=== PATIENT | male | born 1980 | race Two or more races ===

== ENCOUNTER 2020-11-16 20:13 | Emergency (ER) | payer SELFPAY ==
[2020-11-16 21:01] LABS: ANION GAP 15.7 mEq/L (7-13); CHLORIDE,CL 101 mmol/L (98-107); SODIUM,NA 141 mmol/L (136-145)
--- NOTE | 2020-11-16 22:28 | EDM.PDOC ---
ED HPI GENERAL MEDICAL PROBLEM - General Chief Complaint: Neurological Problem Stated Complaint: AMBULANCE Time Seen by Provider: 11/16/20 20:30 Source of Information: Reports: Patient, EMS, RN History Limitations: Reports: No Limitations - History of Present Illness INITIAL COMMENTS - FREE TEXT/NARRATIVE: ED via [facility] with report of seizure [employer]. Self reports seizures since age 3 usually with stress and anxiety. Had 2 last night and [employer]. Did not fall or hit head. no incontinence. Patient states here from [place] and staying with "friends but got in argument last night Unable to get train ticket until Friday night to go back to [place]. Reports at train station sitting on [place] trying to get warm, . Stated people earlier making fun of him, Able to call for EMS himself, and talking to mother on phone when EMS arrived. mother confirmed seizures usually in relation to stressful events. Admits cannabis last month, Last ETOH 10 days prior. Headache Pain Score (Numeric/FACES): 5 - Related Data Allergies Allergy/AdvReac Type Severity Reaction Status Date / Time grass pollen Allergy Sneezing Verified 11/16/20 20:21 Home Meds: Home Meds Divalproex Sodium [Divalproex Sodium ER] 500 mg PO QPM 11/16/20 [History] Divalproex Sodium [Divalproex Sodium ER] 750 mg PO QAM 11/16/20 [History] Losartan [Cozaar] 50 mg PO DAILY 11/16/20 [History] atorvaSTATin Calcium [Lipitor] 20 mg PO QAM 11/16/20 [History] levETIRAcetam [Keppra] 1,000 mg PO QAM 11/16/20 [History] levETIRAcetam [Keppra] 1,500 mg PO QPM 11/16/20 [History] metFORMIN HCl [Metformin HCl] 1,000 mg PO BID 11/16/20 [History] Past Medical History Cardiovascular History: Reports: High Cholesterol, Hypertension Other Cardiovascular History: states that he has a bad heart, states that he is supposed to be on blood thinners but has never gotten them Neurological History: Reports: Seizure Endocrine/Metabolic History: Reports: Diabetes, Type II Social & Family History - Tobacco Use Tobacco Use Status *Q: Never Tobacco User Second Hand Smoke Exposure: No - Recreational Drug Use Recreational Drug Use: Yes Drug Use in Last 12 Months: Yes Recreational Drug Type: Reports: Marijuana/Hashish Recreational Drug Use Frequency: Not Used In Over 1 Month ED ROS GENERAL - Review of Systems Review Of Systems: Comprehensive ROS is negative, except as noted in HPI. - Physical Exam Exam: See Below Exam Limited By: No Limitations General Appearance: Alert, No Apparent Distress Eye Exam: Bilateral Eye: EOMI, PERRL Ears: Normal External Exam Nose: Normal Inspection Throat/Mouth: Normal Inspection, Normal Voice (soft spoken). No: Evidence of Tongue Biting Head Exam: Atraumatic, Normocephalic Neck: Full Range of Motion Respiratory/Chest: No Respiratory Distress, Lungs Clear, Normal Breath Sounds Cardiovascular: Normal Peripheral Pulses, Regular Rate, Rhythm GI/Abdominal: Soft, Non-Tender Neuro Exam (Abbreviated): Alert, Oriented, CN II-XII Intact, Normal Cognition, Normal Gait, No Motor/Sensory Deficits. No: Disoriented, Slow to Respond, Memory Loss Remote Events, Memory Loss Recent Events Back Exam: Full Range of Motion Extremities: Normal Inspection Psychiatric: Normal Mood, Flat Affect Skin Exam: Warm, Dry, Intact Course - Vital Signs Last Recorded V/S: Last Vital Signs Temp 98.7 F 11/16/20 20:08 Pulse 76 11/16/20 20:08 Resp 18 11/16/20 20:08 BP 111/95 H 11/16/20 20:08 Pulse Ox 99 11/16/20 20:08 - Orders/Labs/Meds Orders: Active Orders 24 hr Category Date Time Status DRUG SCREEN URINE BIORAD [URCHEM] Stat Lab 11/16/20 20:15 Ordered Labs: Laboratory Tests 11/16/20 11/16/20 Range/Units 20:35 20:35 WBC 10.4 H (5.0-10.0) 10^3/uL RBC 4.78 (4.6-6.2) 10^6/uL Hgb 15.1 (14.0-18.0) g/dL Hct 42.0 (40.0-54.0) % MCV 87.9 (80-100) fL MCH 31.6 (27.0-34.0) pg MCHC 36.0 H (33.0-35.0) g/dL Plt Count 153 (150-450) 10^3/uL Neut % (Auto) 44.6 (42.2-75.2) % Lymph % (Auto) 47.3 (20.5-50.1) % [place] % (Auto) 6.8 (2-8) % Eos % (Auto) 1.1 (1.0-3.0) % Baso % (Auto) 0.2 (0.0-1.0) % Sodium 141 (136-145) mmol/L Potassium 3.7 (3.5-5.1) mmol/L Chloride 101 (98-107) mmol/L Carbon Dioxide 28 (21-32) mmol/L Anion Gap 15.7 H (7-13) mEq/L BUN 18 (7-18) mg/dL Creatinine 0.62 L (0.70-1.30) mg/dL Est Cr Clr Drug Dosing 146.59 mL/min Estimated GFR (MDRD) > 60 BUN/Creatinine Ratio 29.0 (No establ ref range) Glucose 86 (74-99) mg/dL Calcium 9.1 (8.5-10.1) mg/dL Total Bilirubin 0.5 (0.2-1.0) mg/dL AST 85 H (15-37) U/L ALT 227 H (16-63) U/L Alkaline Phosphatase 44 L (46-116) U/L Total Protein 7.9 (6.4-8.2) g/dL Albumin 4.1 (3.4-5.0) g/dL Globulin 3.8 Albumin/Globulin Ratio 1.1 Ethyl Alcohol < 3 (0) mg/dL Departure - Departure Time of Disposition: 22:29 Disposition: Home, Self-Care 01 Condition: Good Clinical Impression: Seizure, Anxiety - Discharge Information *PRESCRIPTION DRUG MONITORING PROGRAM REVIEWED*: No *COPY OF PRESCRIPTION DRUG MONITORING REPORT IN PATIENT RORO: No Instructions: Seizure, Adult, [id number] Forms: ED Department Discharge Additional Instructions: Take medication as prescribed follow up as needed Sepsis Event Note (ED) - Evaluation Sepsis Screening Result: No Definite Risk - Focused Exam Vital Signs: Vital Signs Temp Pulse Resp BP Pulse Ox 11/16/20 20:08 98.7 F 76 18 111/95 H 99 - My Orders Last 24 Hours: My Active Orders 11/16/20 20:15 DRUG SCREEN URINE BIORAD [URCHEM] Stat - Assessment/Plan Last 24 Hours: My Active Orders 11/16/20 20:15 DRUG SCREEN URINE BIORAD [URCHEM] Stat
== END 2020-11-16 22:42 | disposition home or self-care (01) ==
LOC: DL.ED 20:13
DX: R56.9 Unspecified convulsions (principal); F41.9 Anxiety disorder, unspecified; E78.00 Pure hypercholesterolemia, unspecified; I10 Essential (primary) hypertension; E11.9 Type 2 diabetes mellitus without complications; Z79.84 Long term (current) use of oral hypoglycemic drugs; Z91.048 Other nonmedicinal substance allergy status; Z79.899 Other long term (current) drug therapy
CPT/HCPCS: 36415; 80053; 80307; 85025; 99283; 99285

== ENCOUNTER 2021-03-14 13:36 | Emergency (ER) | payer SELFPAY ==
[2021-03-14 14:51] LABS: ANION GAP 14.1 mEq/L (7-13); CHLORIDE,CL 102 mmol/L (98-107); SODIUM,NA 140 mmol/L (136-145)
[2021-03-14 14:56] LABS: ACETAMINOPHEN 0 ug/mL (10-30 (Therapeutic))
[2021-03-14] MEDS ORDERED: Magnesium Sulfate/Water 2 GM in Premix Bag 1 BAG IV ONE (15:02)
[2021-03-14] MEDS ORDERED: Sodium Chloride 0.9% 1,000 ML IV ONE (15:02)
[2021-03-14] MEDS ORDERED: Bacitracin Oint 1 GM U/D Packet TOP ONE (15:08)
[2021-03-14] MEDS ORDERED: LORazepam 2 MG/ML SDV IVPUSH ONE (15:11)
[2021-03-14] MEDS ORDERED: levETIRAcetam in NaCl (iso-os) 1,000 MG in Premix Bag 1 BAG IV ONE ×2 (15:11)
--- NOTE | 2021-03-14 15:11 | EDM.PDOC ---
ED HPI GENERAL MEDICAL PROBLEM - General Chief Complaint: Neuro Symptoms/Deficits Stated Complaint: AMBULANCE Time Seen by Provider: 03/14/21 14:50 Source of Information: Reports: Patient History Limitations: Reports: No Limitations - History of Present Illness INITIAL COMMENTS - FREE TEXT/NARRATIVE: This 41 yo male patient was brought to the ED by [facility] due to having a seizure. The patient does have a history of seizures, but he has been doing well with his last seizure being in October. The patient reports he has been taking his medications as prescribed. The patient reports he was feeling very hot while at work when all of a sudden he started to see spots. Bystanders report the patient had a seizure. Onset: Today Duration: Minutes: Location: Reports: Generalized Quality: Reports: Other Severity: Moderate Improves with: Reports: None Worsens with: Reports: None Associated Symptoms: Reports: Seizure - Related Data Allergies Allergy/AdvReac Type Severity Reaction Status Date / Time grass pollen Allergy Sneezing Verified 03/14/21 14:00 Home Meds: Home Meds Losartan [Cozaar] 50 mg PO DAILY 11/16/20 [History] atorvaSTATin Calcium [Lipitor] 20 mg PO BEDTIME 11/16/20 [History] levETIRAcetam [Keppra] 1,000 mg PO QAM 11/16/20 [History] levETIRAcetam [Keppra] 1,500 mg PO QPM 11/16/20 [History] metFORMIN HCl [Metformin HCl] 1,000 mg PO BID 11/16/20 [History] Phenytoin Sodium Extended [Dilantin] 300 mg PO BID 03/14/21 [History] Past Medical History Cardiovascular History: Reports: High Cholesterol, Hypertension Other Cardiovascular History: states that he has a bad heart, states that he is supposed to be on blood thinners but has never gotten them Neurological History: Reports: Seizure Endocrine/Metabolic History: Reports: Diabetes, Type II Social & Family History - Tobacco Use Tobacco Use Status *Q: Current Every Day Tobacco User Years of Tobacco use: 0 Packs/Tins Daily: 0 - Caffeine Use Caffeine Use: Reports: Coffee - Recreational Drug Use Recreational Drug Use: No ED ROS GENERAL - Review of Systems Review Of Systems: Comprehensive ROS is negative, except as noted in HPI. - Physical Exam Exam: See Below Exam Limited By: No Limitations General Appearance: Alert, WD/WN, Mild Distress Eye Exam: Bilateral Eye: EOMI, Normal Inspection, PERRL Ears: Normal External Exam, Normal Canal, Hearing Grossly Normal, Normal TMs Nose: Normal Inspection, Normal Mucosa, No Blood Throat/Mouth: Normal Inspection, Normal Lips, Normal Teeth, Normal Gums, Normal Oropharynx, Normal Voice, No Airway Compromise Head Exam: Atraumatic, Normocephalic Neck: Normal Inspection, Supple, Non-Tender, Full Range of Motion Respiratory/Chest: No Respiratory Distress, Lungs Clear, Normal Breath Sounds, No Accessory Muscle Use, Chest Non-Tender Cardiovascular: Normal Peripheral Pulses, Regular Rate, Rhythm, No Edema, No Gallop, No JVD, No Murmur, No Rub GI/Abdominal: Normal Bowel Sounds, Soft, Non-Tender, No Organomegaly, No Distention, No Abnormal Bruit, No Mass (Male) Exam: Deferred Rectal (Males) Exam: Deferred Neuro Exam (Abbreviated): Alert, Oriented, CN II-XII Intact, Normal Cognition, Normal Reflexes, No Motor/Sensory Deficits Back Exam: Normal Inspection, Full Range of Motion, NT Extremities: Other (superfical abrasions to hands) Psychiatric: Normal Affect, Normal Mood Skin Exam: Warm, Dry, Intact, Normal Color, No Rash Course - Vital Signs Last Recorded V/S: Last Vital Signs Temp 98.2 F 03/14/21 14:00 Pulse 95 03/14/21 14:00 Resp 20 03/14/21 14:00 BP 141/89 H 03/14/21 14:00 Pulse Ox 94 L 03/14/21 14:00 - Orders/Labs/Meds Orders: Active Orders 24 hr Category Date Time Status LEVETIRACETAM, S [REF] Urgent Lab 03/14/21 14:24 Received Labs: Laboratory Tests 03/14/21 03/14/21 03/14/21 Range/Units 14:24 14:24 14:24 WBC 8.0 (5.0-10.0) 10^3/uL RBC 4.69 (4.6-6.2) 10^6/uL Hgb 14.8 (14.0-18.0) g/dL Hct 41.4 (40.0-54.0) % MCV 88.3 (80-100) fL MCH 31.6 (27.0-34.0) pg MCHC 35.7 H (33.0-35.0) g/dL Plt Count 172 (150-450) 10^3/uL Neut % (Auto) 63.2 (42.2-75.2) % Lymph % (Auto) 28.1 (20.5-50.1) % [place] % (Auto) 7.1 (2-8) % Eos % (Auto) 1.4 (1.0-3.0) % Baso % (Auto) 0.2 (0.0-1.0) % Sodium 140 (136-145) mmol/L Potassium 4.1 (3.5-5.1) mmol/L Chloride 102 (98-107) mmol/L Carbon Dioxide 28 (21-32) mmol/L Anion Gap 14.1 H (7-13) mEq/L BUN 14 (7-18) mg/dL Creatinine 0.88 (0.70-1.30) mg/dL Est Cr Clr Drug Dosing 109.35 mL/min Estimated GFR (MDRD) > 60 BUN/Creatinine Ratio 15.9 (No establ ref range) Glucose 227 H (70-99) mg/dL Lactic Acid 2.2 H* (0.4-2.0) mmol/L Calcium 9.3 (8.5-10.1) mg/dL Magnesium 1.4 L (1.8-2.4) mg/dL Total Bilirubin 0.4 (0.2-1.0) mg/dL AST 61 H (15-37) U/L ALT 184 H (16-63) U/L Alkaline Phosphatase 59 (46-116) U/L Total Protein 7.5 (6.4-8.2) g/dL Albumin 3.9 (3.4-5.0) g/dL Globulin 3.6 Albumin/Globulin Ratio 1.1 Urine Color (YELLOW) Urine Appearance (CLEAR) Urine pH (5.0-9.0) Ur Specific [place] (1.005-1.030) Urine Protein (NEGATIVE) Urine Glucose (UA) (NEGATIVE) Urine Ketones (NEGATIVE) Urine Occult Blood (NEGATIVE) Urine Nitrite (NEGATIVE) Urine Bilirubin (NEGATIVE) Urine Urobilinogen (0.2-1.0) mg/dL Ur Leukocyte Esterase (NEGATIVE) U Hyaline Cast (Auto) Urine RBC /HPF Urine WBC (0-5/HPF) /HPF Ur Epithelial Cells (NOT SEEN) /HPF Urine Bacteria (0-FEW/HPF) /HPF Urine Mucus (NOT SEEN) /LPF Urine Opiates Screen (NEGATIVE) Ur Oxycodone Screen (NEGATIVE) Urine Methadone Screen (NEGATIVE) Acetaminophen 0 L (10-30 (Therapeutic)) ug/mL Ur Barbiturates Screen (NEGATIVE) Phenytoin (10-20 (Therapeutic)) ug/mL U Tricyclic Antidepress (NEGATIVE) Ur Phencyclidine Scrn (NEGATIVE) Ur Amphetamine Screen (NEGATIVE) U Methamphetamines Scrn (NEGATIVE) Urine MDMA Screen (NEGATIVE) U Benzodiazepines Scrn (NEGATIVE) Urine Cocaine Screen (NEGATIVE) U Marijuana (THC) Screen (NEGATIVE) Ethyl Alcohol < 3 (0) mg/dL 03/14/21 03/14/21 03/14/21 Range/Units 14:24 16:14 16:14 WBC (5.0-10.0) 10^3/uL RBC (4.6-6.2) 10^6/uL Hgb (14.0-18.0) g/dL Hct (40.0-54.0) % MCV (80-100) fL MCH (27.0-34.0) pg MCHC (33.0-35.0) g/dL Plt Count (150-450) 10^3/uL Neut % (Auto) (42.2-75.2) % Lymph % (Auto) (20.5-50.1) % [place] % (Auto) (2-8) % Eos % (Auto) (1.0-3.0) % Baso % (Auto) (0.0-1.0) % Sodium (136-145) mmol/L Potassium (3.5-5.1) mmol/L Chloride (98-107) mmol/L Carbon Dioxide (21-32) mmol/L Anion Gap (7-13) mEq/L BUN (7-18) mg/dL Creatinine (0.70-1.30) mg/dL Est Cr Clr Drug Dosing mL/min Estimated GFR (MDRD) BUN/Creatinine Ratio (No establ ref range) Glucose (70-99) mg/dL Lactic Acid (0.4-2.0) mmol/L Calcium (8.5-10.1) mg/dL Magnesium (1.8-2.4) mg/dL Total Bilirubin (0.2-1.0) mg/dL AST (15-37) U/L ALT (16-63) U/L Alkaline Phosphatase (46-116) U/L Total Protein (6.4-8.2) g/dL Albumin (3.4-5.0) g/dL Globulin Albumin/Globulin Ratio Urine Color Yellow (YELLOW) Urine Appearance Clear (CLEAR) Urine pH 5.5 (5.0-9.0) Ur Specific [place] 1.025 (1.005-1.030) Urine Protein 100 H (NEGATIVE) Urine Glucose (UA) 250 H (NEGATIVE) Urine Ketones Negative (NEGATIVE) Urine Occult Blood Negative (NEGATIVE) Urine Nitrite Negative (NEGATIVE) Urine Bilirubin Negative (NEGATIVE) Urine Urobilinogen 0.2 (0.2-1.0) mg/dL Ur Leukocyte Esterase Negative (NEGATIVE) U Hyaline Cast (Auto) Rare Urine RBC 0-5 /HPF Urine WBC 0-5 (0-5/HPF) /HPF Ur Epithelial Cells Not seen (NOT SEEN) /HPF Urine Bacteria Not seen (0-FEW/HPF) /HPF Urine Mucus Rare (NOT SEEN) /LPF Urine Opiates Screen Negative (NEGATIVE) Ur Oxycodone Screen Negative (NEGATIVE) Urine Methadone Screen Negative (NEGATIVE) Acetaminophen (10-30 (Therapeutic)) ug/mL Ur Barbiturates Screen Negative (NEGATIVE) Phenytoin < 1 L (10-20 (Therapeutic)) ug/mL U Tricyclic Antidepress Negative (NEGATIVE) Ur Phencyclidine Scrn Negative (NEGATIVE) Ur Amphetamine Screen Negative (NEGATIVE) U Methamphetamines Scrn Negative (NEGATIVE) Urine MDMA Screen Negative (NEGATIVE) U Benzodiazepines Scrn Negative (NEGATIVE) Urine Cocaine Screen Negative (NEGATIVE) U Marijuana (THC) Screen Negative (NEGATIVE) Ethyl Alcohol (0) mg/dL Meds: Medications Discontinued Medications Generic Name Dose Route Start Last Admin Trade Name Freq PRN Reason Stop Dose Admin Bacitracin 1 dose 03/14/21 15:08 03/14/21 15:37 Bacitracin Oint 1 Gm U/D Packet TOP 03/14/21 15:09 1 dose ONETIME ONE Administration Magnesium Sulfate 2 gm/ Premix 50 mls @ 25 mls/hr 03/14/21 15:02 03/14/21 15:37 IV 06/16/21 17:01 25 mls/hr ONETIME ONE Administration Sodium Chloride 1,000 mls @ 999 mls/hr 03/14/21 15:02 03/14/21 15:38 Normal Saline IV 03/14/21 16:02 999 mls/hr .BOLUS ONE Administration Levetiracetam 1,000 mg/ Premix 200 mls @ 800 mls/hr 03/14/21 15:11 03/14/21 15:15 IV 03/14/21 15:12 800 mls/hr ONETIME ONE Administration Lorazepam 2 mg 03/14/21 15:11 03/14/21 15:13 Lorazepam 2 Mg/Ml Sdv IVPUSH 03/14/21 15:12 2 mg ONETIME ONE Administration - Re-Assessments/Exams Free Text/Narrative Re-Assessment/Exam: 03/14/21 15:23 While in the ED, the patient did have a witnessed seizure. The patient's girlfriend reports the patient missed doses of his regular medications last night and this morning. Departure - Departure Time of Disposition: 17:06 Disposition: Home, Self-Care 01 Condition: Fair Clinical Impression: Seizure - Discharge Information *PRESCRIPTION DRUG MONITORING PROGRAM REVIEWED*: Not Applicable *COPY OF PRESCRIPTION DRUG MONITORING REPORT IN PATIENT RORO: Not Applicable Instructions: Seizure, Adult, [id number] Forms: ED Department Discharge Care Plan Goals: The patient and his girlfriend were advised of the examination and lab results during the visit. The patient was given IV Magnesium and IV Keppra while in the ED. The patient was encouraged to take his medications as directed. If the patient has any additional symptoms or concerns, the patient should either return to the emergency department or visit his primary care facility. Sepsis Event Note (ED) - Evaluation Sepsis Screening Result: No Definite Risk - Focused Exam Vital Signs: Vital Signs Temp Pulse Resp BP Pulse Ox 03/14/21 14:00 98.2 F 95 20 141/89 H 94 L - My Orders Last 24 Hours: My Active Orders 03/14/21 14:24 LEVETIRACETAM, S [REF] Urgent - Assessment/Plan Last 24 Hours: My Active Orders 03/14/21 14:24 LEVETIRACETAM, S [REF] Urgent
== END 2021-03-14 17:17 | disposition home or self-care (01) ==
LOC: DL.ED 13:36
DX: R56.9 Unspecified convulsions (principal); E78.00 Pure hypercholesterolemia, unspecified; I10 Essential (primary) hypertension; E11.9 Type 2 diabetes mellitus without complications; Z72.0 Tobacco use; Z79.84 Long term (current) use of oral hypoglycemic drugs; Z91.09 Other allergy status, other than to drugs and biological substances
CPT/HCPCS: 36415; 80053; 80143; 80177; 80185; 80305-QW; 80307; 81001; 83605; 83735; 85025; 96365; 96366; 96375; 99284; 99285-25; J1953; J2060; J3475; J7030

== ENCOUNTER 2021-06-25 14:11 | Emergency (ER) | payer BC ==
--- NOTE | 2021-06-25 16:19 | EDM.PDOC ---
ED HPI GENERAL MEDICAL PROBLEM - General Chief Complaint: Gastrointestinal Problem Stated Complaint: VOMITING Time Seen by Provider: 06/25/21 16:08 Source of Information: Reports: Patient History Limitations: Reports: No Limitations - History of Present Illness INITIAL COMMENTS - FREE TEXT/NARRATIVE: This 41 yo male patient reports to the ED due to a sore throat, cough, diffuse chest and abdominal pain. The patient reports his symptoms started this morning and have been getting worse throughout the day. The patient works at [employer] and was advised to come to the ED to be seen. Onset: Today Duration: Constant, Getting Worse Location: Reports: Neck, Chest, Abdomen Quality: Reports: Ache, Dull Severity: Moderate Improves with: Reports: None Worsens with: Reports: None Context: Reports: Other Associated Symptoms: Reports: Cough, Other (sore throat) Middle Chest Pain Score (Numeric/FACES): 7 Throat Pain Score (Numeric/FACES): 5 - Related Data Allergies Allergy/AdvReac Type Severity Reaction Status Date / Time grass pollen Allergy Sneezing Verified 06/25/21 15:18 Home Meds: Home Meds Losartan [Cozaar] 50 mg PO DAILY 11/16/20 [History] atorvaSTATin Calcium [Lipitor] 20 mg PO BEDTIME 11/16/20 [History] levETIRAcetam [Keppra] 1,000 mg PO QAM 11/16/20 [History] levETIRAcetam [Keppra] 1,500 mg PO QPM 11/16/20 [History] metFORMIN HCl [Metformin HCl] 1,000 mg PO BID 11/16/20 [History] Phenytoin Sodium Extended [Dilantin] 300 mg PO BEDTIME 03/14/21 [History] Past Medical History HEENT History: Reports: None Cardiovascular History: Reports: High Cholesterol, Hypertension Other Cardiovascular History: states that he has a bad heart, states that he is supposed to be on blood thinners but has never gotten them Respiratory History: Reports: Other (See Below) Other Respiratory History: states he has a black spot on his R) lung Gastrointestinal History: Reports: Pancreatitis Genitourinary History: Reports: None Musculoskeletal History: Reports: None Neurological History: Reports: Seizure Other Neuro History: last seizure March 2021 Psychiatric History: Reports: None Endocrine/Metabolic History: Reports: Diabetes, Type II Hematologic History: Reports: None Immunologic History: Reports: None Oncologic (Cancer) History: Reports: None Dermatologic History: Reports: None - Infectious Disease History Infectious Disease History: Reports: Chicken Pox - Past Surgical History Head Surgeries/Procedures: Reports: None HEENT Surgical History: Reports: None Cardiovascular Surgical History: Reports: None Respiratory Surgical History: Reports: None GI Surgical History: Reports: None Male Surgical History: Reports: None Endocrine Surgical History: Reports: None Neurological Surgical History: Reports: None Musculoskeletal Surgical History: Reports: None Social & Family History - Tobacco Use Tobacco Use Status *Q: Current Every Day Tobacco User Years of Tobacco use: 25 Packs/Tins Daily: 0.5 Used Tobacco, but Quit: Yes Month/Year Tobacco Last Used: 04/2021 Second Hand Smoke Exposure: No - Caffeine Use Caffeine Use: Reports: Coffee Caffeine Use Comment: 1 - Recreational Drug Use Recreational Drug Use: No ED ROS GENERAL - Review of Systems Review Of Systems: Comprehensive ROS is negative, except as noted in HPI. ED EXAM, GENERAL - Physical Exam Exam: See Below Exam Limited By: No Limitations General Appearance: Alert, WD/WN, Mild Distress Eye Exam: Bilateral Eye: EOMI, Normal Inspection, PERRL Ears: Normal External Exam, Other (Right canal erythema with a small amount of fluid visible behind the TM) Nose: Normal Inspection, Normal Mucosa, No Blood Throat/Mouth: Normal Inspection, Normal Lips, Normal Teeth, Normal Gums, Normal Oropharynx, Normal Voice, No Airway Compromise Head: Atraumatic, Normocephalic Neck: Normal Inspection, Supple, Non-Tender, Full Range of Motion Respiratory/Chest: No Respiratory Distress, Lungs Clear, Normal Breath Sounds, No Accessory Muscle Use, Chest Non-Tender Cardiovascular: Normal Peripheral Pulses, Regular Rate, Rhythm, No Edema, No Gallop, No JVD, No Murmur, No Rub GI/Abdominal: Normal Bowel Sounds, Soft, Non-Tender, No Organomegaly, No Distention, No Abnormal Bruit, No Mass (Male) Exam: Deferred Rectal (Males) Exam: Deferred Back Exam: Normal Inspection, Full Range of Motion, NT Extremities: Normal Inspection, Normal Range of Motion, Non-Tender, Normal Capillary Refill, No Pedal Edema Neurological: Alert, Oriented, CN II-XII Intact, Normal Cognition, Normal Gait, Normal Reflexes, No Motor/Sensory Deficits Psychiatric: Normal Affect, Normal Mood Skin Exam: Warm, Dry, Intact, Normal Color, No Rash Lymphatic: No Adenopathy #1 Interpretation EKG Date: 06/25/21 Time: 16:06 Rhythm: NSR Rate (Beats/Min): 89 [place]: Normal P-Wave: Present QRS: Normal ST-T: Normal QT: Normal Comparison: NA - No Prior EKG Course - Vital Signs Last Recorded V/S: Last Vital Signs Temp 96.5 F L 06/25/21 14:58 Pulse 96 06/25/21 14:58 Resp 14 06/25/21 14:58 BP 135/106 H 06/25/21 14:58 Pulse Ox 98 06/25/21 14:58 - Orders/Labs/Meds Orders: Active Orders 24 hr Category Date Time Status DRUG SCREEN URINE BIORAD [URCHEM] Stat Lab 06/25/21 15:52 Ordered UA RFX TRINI AND CULT IF INDIC [URIN] Urgent Lab 06/25/21 15:52 Ordered Labs: Laboratory Tests 06/25/21 06/25/21 06/25/21 Range/Units 15:17 16:16 16:16 WBC 10.8 H (5.0-10.0) 10^3/uL RBC 5.03 (4.6-6.2) 10^6/uL Hgb 16.0 (14.0-18.0) g/dL Hct 44.5 (40.0-54.0) % MCV 88.5 (80-100) fL MCH 31.8 (27.0-34.0) pg MCHC 36.0 H (33.0-35.0) g/dL Plt Count 209 (150-450) 10^3/uL Neut % (Auto) 59.3 (42.2-75.2) % Lymph % (Auto) 29.5 (20.5-50.1) % [place] % (Auto) 8.7 H (2-8) % Eos % (Auto) 2.2 (1.0-3.0) % Baso % (Auto) 0.3 (0.0-1.0) % Sodium 140 (136-145) mmol/L Potassium 4.3 (3.5-5.1) mmol/L Chloride 101 (98-107) mmol/L Carbon Dioxide 31 (21-32) mmol/L Anion Gap 12.3 (7-13) mEq/L BUN 13 (7-18) mg/dL Creatinine 0.84 (0.70-1.30) mg/dL Est Cr Clr Drug Dosing 107.11 mL/min Estimated GFR (MDRD) > 60 BUN/Creatinine Ratio 15.5 (No establ ref range) Glucose 166 H (70-99) mg/dL Lactic Acid (0.4-2.0) mmol/L Calcium 8.8 (8.5-10.1) mg/dL Total Bilirubin 0.3 (0.2-1.0) mg/dL AST 64 H (15-37) U/L ALT 173 H (16-63) U/L Alkaline Phosphatase 87 (46-116) U/L Troponin I High Sens 6 (<=76) pg/mL Total Protein 8.0 (6.4-8.2) g/dL Albumin 4.1 (3.4-5.0) g/dL Globulin 3.9 Albumin/Globulin Ratio 1.1 SARS-CoV-2 RNA (KERI) Negative (NEGATIVE) 06/25/21 Range/Units 16:16 WBC (5.0-10.0) 10^3/uL RBC (4.6-6.2) 10^6/uL Hgb (14.0-18.0) g/dL Hct (40.0-54.0) % MCV (80-100) fL MCH (27.0-34.0) pg MCHC (33.0-35.0) g/dL Plt Count (150-450) 10^3/uL Neut % (Auto) (42.2-75.2) % Lymph % (Auto) (20.5-50.1) % [place] % (Auto) (2-8) % Eos % (Auto) (1.0-3.0) % Baso % (Auto) (0.0-1.0) % Sodium (136-145) mmol/L Potassium (3.5-5.1) mmol/L Chloride (98-107) mmol/L Carbon Dioxide (21-32) mmol/L Anion Gap (7-13) mEq/L BUN (7-18) mg/dL Creatinine (0.70-1.30) mg/dL Est Cr Clr Drug Dosing mL/min Estimated GFR (MDRD) BUN/Creatinine Ratio (No establ ref range) Glucose (70-99) mg/dL Lactic Acid 1.0 (0.4-2.0) mmol/L Calcium (8.5-10.1) mg/dL Total Bilirubin (0.2-1.0) mg/dL AST (15-37) U/L ALT (16-63) U/L Alkaline Phosphatase (46-116) U/L Troponin I High Sens (<=76) pg/mL Total Protein (6.4-8.2) g/dL Albumin (3.4-5.0) g/dL Globulin Albumin/Globulin Ratio SARS-CoV-2 RNA (KERI) (NEGATIVE) Departure - Departure Time of Disposition: 16:53 Disposition: Home, Self-Care 01 Condition: Fair Clinical Impression: Sore throat Right otitis media Qualifiers: Otitis media type: unspecified Qualified Code(s): H66.91 - Otitis media, unspecified, right ear - Discharge Information *PRESCRIPTION DRUG MONITORING PROGRAM REVIEWED*: Not Applicable *COPY OF PRESCRIPTION DRUG MONITORING REPORT IN PATIENT RORO: Not Applicable Instructions: Otitis Media, Adult, [id number], Pharyngitis, [id number] Forms: ED Department Discharge Care Plan Goals: The patient was advised of the examination, lab and EKG results during the visit. The patient was discharged with a script for Augmentin (500/125) #20 to take 1 by mouth 2 times per day for 10 days. If the patient has any additional symptoms or concerns, the patient should either return to the emergency department or visit his primary care facility. Sepsis Event Note (ED) - Focused Exam Vital Signs: Vital Signs Temp Pulse Resp BP Pulse Ox 06/25/21 14:58 96.5 F L 96 14 135/106 H 98 - My Orders Last 24 Hours: My Active Orders 06/25/21 15:52 DRUG SCREEN URINE BIORAD [URCHEM] Stat UA RFX TRINI AND CULT IF INDIC [URIN] Urgent - Assessment/Plan Last 24 Hours: My Active Orders 06/25/21 15:52 DRUG SCREEN URINE BIORAD [URCHEM] Stat UA RFX TRINI AND CULT IF INDIC [URIN] Urgent
[2021-06-25 16:44] LABS: ANION GAP 12.3 mEq/L (7-13); CHLORIDE,CL 101 mmol/L (98-107); SODIUM,NA 140 mmol/L (136-145)
== END 2021-06-25 17:02 | disposition home or self-care (01) ==
LOC: DL.ED 14:11
DX: J02.9 Acute pharyngitis, unspecified (principal); H66.91 Otitis media, unspecified, right ear; E78.00 Pure hypercholesterolemia, unspecified; I10 Essential (primary) hypertension; E11.9 Type 2 diabetes mellitus without complications; Z91.09 Other allergy status, other than to drugs and biological substances; Z79.84 Long term (current) use of oral hypoglycemic drugs; Z79.899 Other long term (current) drug therapy; Z72.0 Tobacco use; Z20.822 Contact with and (suspected) exposure to COVID-19
CPT/HCPCS: 36415; 80053; 83605; 84484; 85025; 93005; 99284-25; U0002

== ENCOUNTER 2021-08-06 18:58 | Emergency (ER) | payer BC ==
[2021-08-06] MEDS ORDERED: Ondansetron 4 MG Tab.DIS PO ONE (18:59)
[2021-08-06] MEDS ORDERED: Ondansetron 4 MG/2 ML SDV IVPUSH ONE (20:27)
[2021-08-06] MEDS ORDERED: Sodium Chloride 0.9% 1,000 ML IV ONE (20:27)
--- NOTE | 2021-08-06 20:27 | EDM.PDOC ---
ED HPI GENERAL MEDICAL PROBLEM - General Chief Complaint: Respiratory Problem Stated Complaint: COVID - FRIDAY ALL SYSTOMS Time Seen by Provider: 08/06/21 20:50 Source of Information: Reports: Patient, RN History Limitations: Reports: No Limitations - History of Present Illness INITIAL COMMENTS - FREE TEXT/NARRATIVE: Osfernanda JORGENSEN sy one week, tested positive on , Diarrhea body aches fever cough. Today coughing episode and streaks of blood. Diarrhea stools up20 20 times per day, everything goes straight through. Chest discomfort with coughing. Hx seizure disorder, states medications thus far have been staying down. 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 .mid sternal Pain Score (Numeric/FACES): 5 - Related Data Allergies Allergy/AdvReac Type Severity Reaction Status Date / Time grass pollen Allergy Sneezing Verified 08/06/21 19:55 Home Meds: Home Meds Losartan [Cozaar] 50 mg PO DAILY 11/16/20 [History] atorvaSTATin Calcium [Lipitor] 20 mg PO BEDTIME 11/16/20 [History] levETIRAcetam [Keppra] 750 mg PO BID 11/16/20 [History] metFORMIN HCl [Metformin HCl] 1,000 mg PO BID 11/16/20 [History] Phenytoin Sodium Extended [Dilantin] 300 mg PO BEDTIME 03/14/21 [History] Past Medical History HEENT History: Reports: None Cardiovascular History: Reports: High Cholesterol, Hypertension Other Cardiovascular History: states that he has a bad heart, states that he is supposed to be on blood thinners but has never gotten them Respiratory History: Reports: Other (See Below) Other Respiratory History: states he has a black spot on his R) lung Gastrointestinal History: Reports: Pancreatitis Genitourinary History: Reports: None Musculoskeletal History: Reports: None Neurological History: Reports: Seizure Other Neuro History: last seizure March 2021 Psychiatric History: Reports: None Endocrine/Metabolic History: Reports: Diabetes, Type II Hematologic History: Reports: None Immunologic History: Reports: None Oncologic (Cancer) History: Reports: None Dermatologic History: Reports: None - Infectious Disease History Infectious Disease History: Reports: Chicken Pox - Past Surgical History Head Surgeries/Procedures: Reports: None HEENT Surgical History: Reports: None Cardiovascular Surgical History: Reports: None Respiratory Surgical History: Reports: None GI Surgical History: Reports: None Male Surgical History: Reports: None Endocrine Surgical History: Reports: None Neurological Surgical History: Reports: None Musculoskeletal Surgical History: Reports: None Social & Family History - Caffeine Use Caffeine Use: Reports: Coffee Caffeine Use Comment: 1 ED ROS GENERAL - Review of Systems Review Of Systems: Comprehensive ROS is negative, except as noted in HPI. ED EXAM, GENERAL - Physical Exam Exam: See Below Exam Limited By: No Limitations General Appearance: Alert, Mild Distress, Obese Eye Exam: Bilateral Eye: EOMI, PERRL Ears: Normal External Exam, Hearing Grossly Normal, Normal TMs Nose: Normal Inspection Throat/Mouth: Normal Inspection. No: Normal Voice (soft) Head: Atraumatic, Normocephalic Neck: Normal Inspection, Full Range of Motion Respiratory/Chest: No Respiratory Distress, Lungs Clear, Decreased Breath Sounds GI/Abdominal: Normal Bowel Sounds, Soft, Tender (epigastric) Extremities: Normal Inspection Neurological: Alert, Oriented, Normal Cognition Psychiatric: Flat Affect Skin Exam: Warm, Dry, Intact, Normal Color #1 Interpretation EKG Date: 08/06/21 Time: 20:17 Rhythm: NSR [place]: Normal P-Wave: Present QRS: Normal ST-T: Other (flattened II, III, AVF) Comparison: NA - No Prior EKG Course - Vital Signs Last Recorded V/S: Last Vital Signs Temp 97.6 F 08/06/21 23:16 Pulse 90 08/06/21 23:16 Resp 20 08/06/21 23:16 BP 121/75 08/06/21 23:16 Pulse Ox 98 08/06/21 23:16 - Orders/Labs/Meds Labs: Laboratory Tests 08/06/21 08/06/21 08/06/21 Range/Units 20:23 20:23 20:23 WBC 5.8 (5.0-10.0) 10^3/uL RBC 5.35 (4.6-6.2) 10^6/uL Hgb 16.9 (14.0-18.0) g/dL Hct 46.6 (40.0-54.0) % MCV 87.1 (80-100) fL MCH 31.6 (27.0-34.0) pg MCHC 36.3 H (33.0-35.0) g/dL Plt Count 147 L (150-450) 10^3/uL Neut % (Auto) 45.2 (42.2-75.2) % Lymph % (Auto) 41.1 (20.5-50.1) % [place] % (Auto) 13.2 H (2-8) % Eos % (Auto) 0.2 L (1.0-3.0) % Baso % (Auto) 0.3 (0.0-1.0) % D-Dimer, Quantitative 137 (0-400) ng/mL Sodium 136 (136-145) mmol/L Potassium 4.1 (3.5-5.1) mmol/L Chloride 97 L (98-107) mmol/L Carbon Dioxide 26 (21-32) mmol/L Anion Gap 17.1 H (7-13) mEq/L BUN 15 (7-18) mg/dL Creatinine 0.87 (0.70-1.30) mg/dL Est Cr Clr Drug Dosing 103.41 mL/min Estimated GFR (MDRD) > 60 BUN/Creatinine Ratio 17.2 (No establ ref range) Glucose 180 H (70-99) mg/dL Lactic Acid (0.4-2.0) mmol/L Calcium 8.6 (8.5-10.1) mg/dL Total Bilirubin 0.4 (0.2-1.0) mg/dL AST 43 H (15-37) U/L ALT 127 H (16-63) U/L Alkaline Phosphatase 81 (46-116) U/L C-Reactive Protein 1.5 H (0.0-0.9) mg/dL B-Natriuretic Peptide < 5 (0-100) pg/ml Total Protein 8.2 (6.4-8.2) g/dL Albumin 3.9 (3.4-5.0) g/dL Globulin 4.3 Albumin/Globulin Ratio 0.9 Amylase 69 (25-115) U/L Lipase 192 (73-393) U/L Urine Color (YELLOW) Urine Appearance (CLEAR) Urine pH (5.0-9.0) Ur Specific [place] (1.005-1.030) Urine Protein (NEGATIVE) Urine Glucose (UA) (NEGATIVE) Urine Ketones (NEGATIVE) Urine Occult Blood (NEGATIVE) Urine Nitrite (NEGATIVE) Urine Bilirubin (NEGATIVE) Urine Urobilinogen (0.2-1.0) mg/dL Ur Leukocyte Esterase (NEGATIVE) Urine RBC (0-5) /HPF Urine WBC (0-5/HPF) /HPF Ur Epithelial Cells (NOT SEEN) /HPF Amorphous Sediment (NOT SEEN) /HPF Urine Mucus (NOT SEEN) /LPF Phenytoin (10-20 (Therapeutic)) ug/mL 08/06/21 08/06/21 08/06/21 Range/Units 20:23 20:23 22:50 WBC (5.0-10.0) 10^3/uL RBC (4.6-6.2) 10^6/uL Hgb (14.0-18.0) g/dL Hct (40.0-54.0) % MCV (80-100) fL MCH (27.0-34.0) pg MCHC (33.0-35.0) g/dL Plt Count (150-450) 10^3/uL Neut % (Auto) (42.2-75.2) % Lymph % (Auto) (20.5-50.1) % [place] % (Auto) (2-8) % Eos % (Auto) (1.0-3.0) % Baso % (Auto) (0.0-1.0) % D-Dimer, Quantitative (0-400) ng/mL Sodium (136-145) mmol/L Potassium (3.5-5.1) mmol/L Chloride (98-107) mmol/L Carbon Dioxide (21-32) mmol/L Anion Gap (7-13) mEq/L BUN (7-18) mg/dL Creatinine (0.70-1.30) mg/dL Est Cr Clr Drug Dosing mL/min Estimated GFR (MDRD) BUN/Creatinine Ratio (No establ ref range) Glucose (70-99) mg/dL Lactic Acid 1.3 (0.4-2.0) mmol/L Calcium (8.5-10.1) mg/dL Total Bilirubin (0.2-1.0) mg/dL AST (15-37) U/L ALT (16-63) U/L Alkaline Phosphatase (46-116) U/L C-Reactive Protein (0.0-0.9) mg/dL B-Natriuretic Peptide (0-100) pg/ml Total Protein (6.4-8.2) g/dL Albumin (3.4-5.0) g/dL Globulin Albumin/Globulin Ratio Amylase (25-115) U/L Lipase (73-393) U/L Urine Color Dark yellow (YELLOW) Urine Appearance Slightly cloudy (CLEAR) Urine pH 5.5 (5.0-9.0) Ur Specific [place] >= 1.030 (1.005-1.030) Urine Protein >=300 H (NEGATIVE) Urine Glucose (UA) Negative (NEGATIVE) Urine Ketones Negative (NEGATIVE) Urine Occult Blood Small H (NEGATIVE) Urine Nitrite Negative (NEGATIVE) Urine Bilirubin Negative (NEGATIVE) Urine Urobilinogen 0.2 (0.2-1.0) mg/dL Ur Leukocyte Esterase Negative (NEGATIVE) Urine RBC 0-5 (0-5) /HPF Urine WBC 0-5 (0-5/HPF) /HPF Ur Epithelial Cells Few (NOT SEEN) /HPF Amorphous Sediment Few (NOT SEEN) /HPF Urine Mucus Few H (NOT SEEN) /LPF Phenytoin 5 L (10-20 (Therapeutic)) ug/mL Meds: Medications Discontinued Medications Generic Name Dose Route Start Last Admin Trade Name Andreyq PRN Reason Stop Dose Admin Acetaminophen 650 mg 08/06/21 22:11 08/06/21 22:14 Acetaminophen 325 Mg Tab PO 08/06/21 22:12 650 mg NOW ONE Administration Azithromycin 500 mg 08/06/21 22:45 08/06/21 23:06 Azithromycin 250 Mg Tab PO 08/06/21 22:46 500 mg ONETIME ONE Administration Famotidine 20 mg 08/06/21 21:45 08/06/21 22:03 Famotidine 20 Mg/2 Ml Sdv IVPUSH 08/06/21 21:46 20 mg ONETIME ONE Administration Sodium Chloride 1,000 mls @ 250 mls/hr 08/06/21 20:27 08/06/21 20:43 Normal Saline IV 08/07/21 00:26 250 mls/hr .BOLUS ONE Administration Ondansetron HCl 4 mg 08/06/21 20:27 08/06/21 20:43 Ondansetron 4 Mg/2 Ml Sdv IVPUSH 08/06/21 20:28 4 mg ONETIME ONE Administration Ondansetron HCl Confirm 08/06/21 22:56 08/06/21 23:11 Ondansetron 4 Mg Tab.Dis Administered 08/06/21 22:57 Not Given Dose 12 mg .ROUTE .STK-MED ONE Phenytoin Sodium 300 mg 08/07/21 21:48 08/06/21 22:04 Phenytoin 100 Mg Cap.Er PO 08/07/21 21:49 300 mg BEDTIME ONE Administration Phenytoin Sodium Confirm 08/06/21 21:57 08/06/21 22:06 Phenytoin 100 Mg Cap.Er Administered 08/06/21 21:58 Not Given Dose 300 mg .ROUTE .STK-MED ONE - Re-Assessments/Exams Free Text/Narrative Re-Assessment/Exam: 08/07/21 01:31 Sx improved, Reports feeling better with less nausea and not as achey after fluids. More alert. VSS No further emesis or diarrhea during ED stay. Departure - Departure Time of Disposition: 22:42 Disposition: Home, Self-Care 01 Condition: Good Clinical Impression: COVID, Diarrhea - Discharge Information *PRESCRIPTION DRUG MONITORING PROGRAM REVIEWED*: No *COPY OF PRESCRIPTION DRUG MONITORING REPORT IN PATIENT RORO: No Instructions: Symptoms of COVID-19 - CDC (11/20/2020) Forms: ED Department Discharge Additional Instructions: increase fluids tyelnol 500mg every 4 hours as needed for fever/ discomfort additional dilantin tonight at bedtime 200mg zofran 4mg ODT every 4 hours as needed for nausea pepcid 20mg daily as needed for indigestion azithromycin 250mg one daily for 4 days follow up if symptoms not improving or worsening Sepsis Event Note (ED) - Evaluation Sepsis Screening Result: No Definite Risk - Focused Exam Vital Signs: Vital Signs Temp Temp Pulse Resp BP Pulse Ox 08/06/21 23:16 97.6 F 90 20 121/75 98 08/06/21 22:14 100.7 F H 08/06/21 22:08 100.7 F H 99 22 H 137/93 H 96 08/06/21 19:18 98.3 F 109 H 16 143/82 H 97
[2021-08-06 21:10] LABS: ANION GAP 17.1 mEq/L (7-13); CHLORIDE,CL 97 mmol/L (98-107); SODIUM,NA 136 mmol/L (136-145)
[2021-08-06] MEDS ORDERED: Famotidine 20 MG/2 ML SDV IVPUSH ONE (21:45)
[2021-08-06] MEDS ORDERED: Phenytoin 100 MG Cap.ER ONE (21:57)
[2021-08-06] MEDS ORDERED: Acetaminophen 325 MG Tab PO ONE (22:11)
--- NOTE | 2021-08-06 22:22 | CR ---
PROCEDURE INFORMATION: Exam: XR Chest Exam date and time: 08/06/2021 9:53 PM Age: 41 years old Clinical indication: Cough; Additional info: Cough covid + one week ago TECHNIQUE: Imaging protocol: XR of the chest. Views: 1 view. COMPARISON: No relevant prior studies available. FINDINGS: Lungs: Mild bilateral hazy and patchy pulmonary opacities. No dense lobar consolidation. Pleural spaces: Unremarkable. No pleural effusion. No pneumothorax. Heart/Mediastinum: Unremarkable. No cardiomegaly. Bones/joints: No evidence of acute osseous abnormality. IMPRESSION: Mild bilateral pulmonary opacities are nonspecific but can be seen with viral pneumonia.
[2021-08-06] MEDS ORDERED: Azithromycin 250 MG Tab PO ONE (22:45)
[2021-08-06] MEDS ORDERED: Ondansetron 4 MG Tab.DIS ONE (22:56)
[2021-08-07] MEDS ORDERED: Phenytoin 100 MG Cap.ER PO ONE (21:48)
== END 2021-08-06 23:23 | disposition home or self-care (01) ==
LOC: DL.ED 18:58
DX: U07.1 COVID-19 (principal); R19.7 Diarrhea, unspecified; E11.9 Type 2 diabetes mellitus without complications; Z79.84 Long term (current) use of oral hypoglycemic drugs; Z91.048 Other nonmedicinal substance allergy status; Z79.899 Other long term (current) drug therapy
CPT/HCPCS: 36415; 71045; 80053; 80185; 81001; 82150; 83605; 83690; 83880; 85025; 85379; 86140; 93005; 96374; 96375; 99285; A9270; J2405; J3490; J7030

== ENCOUNTER 2021-08-12 03:11 | Inpatient (IN) | payer BC ==
[~2021-08-12 03:11] MED LIST: Phenytoin 1,000 MG in Sodium Chloride 0.9% 100 ML IV ONE; Sodium Chloride 0.9% 1,000 ML IV ONE
--- NOTE | 2021-08-12 03:11 | EDM.PDOC ---
ED HPI GENERAL MEDICAL PROBLEM - General Stated Complaint: AMBULANCE Time Seen by Provider: 08/12/21 03:00 Source of Information: Reports: Patient, EMS, EMS Notes Reviewed, RN, RN Notes Reviewed History Limitations: Reports: Altered Mental Status - History of Present Illness INITIAL COMMENTS - FREE TEXT/NARRATIVE: Patient is a 41-year-old male who presents to ER per [facility] with complaint of seizures. Patient does have a known seizure disorder, currently takes Keppra as well as Dilantin. Report from EMS was that the patient began having seizures at approximately 9:30 PM this evening. Upon arrival to the ER patient had had 5 total seizures. Patient very postictal upon arrival to ER. Chart review shows Covid diagnosis on 08/06/2021, with monoclonal infusion on 08/09/2021. /significant other reported to EMS no drug or alcohol use, reports that the patient has been taking his medications as prescribed. Patient is reportedly diabetic, takes Metformin. Onset: Today, Sudden - Related Data Allergies Allergy/AdvReac Type Severity Reaction Status Date / Time grass pollen Allergy Sneezing Verified 08/09/21 11:07 Home Meds: Home Meds Losartan [Cozaar] 50 mg PO DAILY 11/16/20 [History] atorvaSTATin Calcium [Lipitor] 20 mg PO BEDTIME 11/16/20 [History] levETIRAcetam [Keppra] 1,500 mg PO BID 11/16/20 [History] metFORMIN HCl [Metformin HCl] 1,000 mg PO BID 11/16/20 [History] Phenytoin Sodium Extended [Dilantin] 300 mg PO BEDTIME 03/14/21 [History] Past Medical History HEENT History: Reports: None Cardiovascular History: Reports: High Cholesterol, Hypertension Other Cardiovascular History: states that he has a bad heart, states that he is supposed to be on blood thinners but has never gotten them Respiratory History: Reports: Other (See Below) Other Respiratory History: states he has a black spot on his R) lung. Covid 19 08/02/21 Gastrointestinal History: Reports: Pancreatitis Genitourinary History: Reports: None Musculoskeletal History: Reports: Arthritis Neurological History: Reports: Seizure Other Neuro History: last seizure March 2021 Psychiatric History: Reports: None Endocrine/Metabolic History: Reports: Diabetes, Type II Hematologic History: Reports: None Immunologic History: Reports: None Oncologic (Cancer) History: Reports: None Dermatologic History: Reports: None - Infectious Disease History Infectious Disease History: Reports: Chicken Pox, Novel Coronavirus - Past Surgical History Head Surgeries/Procedures: Reports: None HEENT Surgical History: Reports: None Cardiovascular Surgical History: Reports: None Respiratory Surgical History: Reports: None GI Surgical History: Reports: Colonoscopy Male Surgical History: Reports: None Endocrine Surgical History: Reports: None Neurological Surgical History: Reports: None Musculoskeletal Surgical History: Reports: None Dermatological Surgical History: Reports: None Social & Family History - Caffeine Use Caffeine Use: Reports: Coffee Caffeine Use Comment: LARGE CUP IN THE AM ED ROS GENERAL - Review of Systems Review Of Systems: Comprehensive ROS is negative, except as noted in HPI. - Physical Exam Exam: See Below Exam Limited By: Altered Mental Status General Appearance: Obtunded Eye Exam: Bilateral Eye: EOMI, Normal Inspection, PERRL (2 sluggish) Ears: Hearing Grossly Normal, Other (tragus abnormality) Nose: Normal Inspection Throat/Mouth: Normal Inspection, Normal Lips, Normal Teeth, Normal Gums, Normal Oropharynx, No Airway Compromise Head Exam: Atraumatic, Normocephalic Neck: Normal Inspection, Supple, Non-Tender, Full Range of Motion Respiratory/Chest: No Respiratory Distress, Lungs Clear, No Accessory Muscle Use, Chest Non-Tender, Decreased Breath Sounds Cardiovascular: Normal Peripheral Pulses, Regular Rate, Rhythm, No Edema, No Gallop, No JVD, No Murmur, No Rub, Tachycardia GI/Abdominal: Normal Bowel Sounds, Soft, Non-Tender, No Organomegaly, No Distention, No Abnormal Bruit, No Mass (Male) Exam: Deferred Rectal (Males) Exam: Deferred Neuro Exam (Abbreviated): Other (postictal) Back Exam: Normal Inspection, Full Range of Motion Extremities: Normal Inspection, Normal Range of Motion, Non-Tender, No Pedal Edema, Normal Capillary Refill Psychiatric: Other Skin Exam: Warm, Dry, Intact, Normal Color, No Rash #1 Interpretation EKG Date: 08/12/21 Time: 03:07 Rhythm: Other (sinus tachycardia) Rate (Beats/Min): 127 [place]: Normal P-Wave: Present QRS: Normal ST-T: Normal QT: Normal Comparison: Change From Previous EKG Course - Vital Signs Last Recorded V/S: Last Vital Signs Temp 98.4 F 08/12/21 03:13 Pulse 124 H 08/12/21 03:13 Resp 16 08/12/21 03:13 BP 145/107 H 08/12/21 03:13 Pulse Ox 95 08/12/21 03:13 - Orders/Labs/Meds Orders: Active Orders 24 hr Category Date Time Status CULTURE BLOOD [BC] Stat Lab 08/12/21 03:05 Received CULTURE BLOOD [BC] Stat Lab 08/12/21 03:15 Received LEVETIRACETAM, S [REF] Stat Lab 08/12/21 03:05 Received UA W/MICROSCOPIC [URIN] Stat Lab 08/12/21 02:56 Results Blood Culture x2 Reflex Set [OM.PC] Stat Oth 08/12/21 02:54 Ordered Medication Orders Dextrose/Water (50% Dextrose In Water 50 Ml Syringe) 25 ml IVPUSH ASDIRECTED PRN PRN Reason: Hypoglycemia BS<70 Insulin Human Lispro (Insulin Lispro 100 Units/Ml 3 Ml Vial) 0 unit SUBCUT WITHMEALSANDBED ANUEL; Protocol Levetiracetam (Levetiracetam 500 Mg Tab) 1,500 mg PO BID ANUEL Lorazepam (Lorazepam 2 Mg/Ml Sdv) 1 mg IVPUSH Q1H PRN PRN Reason: agitation, seizure Phenytoin Sodium (Phenytoin 100 Mg Cap.Er) 300 mg PO BEDTIME ANUEL Labs: Laboratory Tests 08/12/21 08/12/21 08/12/21 Range/Units 02:55 02:56 03:05 WBC 12.3 H (5.0-10.0) 10^3/uL RBC 5.23 (4.6-6.2) 10^6/uL Hgb 16.3 (14.0-18.0) g/dL Hct 45.7 (40.0-54.0) % MCV 87.4 (80-100) fL MCH 31.2 (27.0-34.0) pg MCHC 35.7 H (33.0-35.0) g/dL Plt Count 339 D (150-450) 10^3/uL Neut % (Auto) 71.7 (42.2-75.2) % Lymph % (Auto) 21.6 (20.5-50.1) % [place] % (Auto) 5.6 (2-8) % Eos % (Auto) 0.9 L (1.0-3.0) % Baso % (Auto) 0.2 (0.0-1.0) % Add Manual Diff Yes Neutrophils % (Manual) 70 (42-75) % Band Neutrophils % 6 % Lymphocytes % (Manual) 21 (20-50) % Atypical Lymphs % 0 % Monocytes % (Manual) 1 L (2-8) % Eosinophils % (Manual) 2 (1-3) % Sodium (136-145) mmol/L Potassium (3.5-5.1) mmol/L Chloride (98-107) mmol/L Carbon Dioxide (21-32) mmol/L Anion Gap (7-13) mEq/L BUN (7-18) mg/dL Creatinine (0.70-1.30) mg/dL Est Cr Clr Drug Dosing Estimated GFR (MDRD) BUN/Creatinine Ratio (No establ ref range) Glucose (70-99) mg/dL Calcium (8.5-10.1) mg/dL Total Bilirubin (0.2-1.0) mg/dL Direct Bilirubin (0.0-0.2) mg/dL AST (15-37) U/L ALT (16-63) U/L Alkaline Phosphatase (46-116) U/L C-Reactive Protein (0.0-0.9) mg/dL Total Protein (6.4-8.2) g/dL Albumin (3.4-5.0) g/dL Globulin Albumin/Globulin Ratio Urine Color Yellow (YELLOW) Urine Appearance Slightly cloudy (CLEAR) Urine pH 5.0 (5.0-9.0) Ur Specific [place] >= 1.030 (1.005-1.030) Urine Protein 100 H (NEGATIVE) Urine Glucose (UA) 500 H (NEGATIVE) Urine Ketones Trace H (NEGATIVE) Urine Occult Blood Trace-intact H (NEGATIVE) Urine Nitrite Negative (NEGATIVE) Urine Bilirubin Negative (NEGATIVE) Urine Urobilinogen 0.2 (0.2-1.0) mg/dL Ur Leukocyte Esterase Negative (NEGATIVE) Urine Opiates Screen Negative (NEGATIVE) Ur Oxycodone Screen Negative (NEGATIVE) Urine Methadone Screen Negative (NEGATIVE) Ur Barbiturates Screen Positive H (NEGATIVE) Phenytoin (10-20 (Therapeutic)) ug/mL U Tricyclic Antidepress Negative (NEGATIVE) Ur Phencyclidine Scrn Negative (NEGATIVE) Ur Amphetamine Screen Negative (NEGATIVE) U Methamphetamines Scrn Negative (NEGATIVE) Urine MDMA Screen Negative (NEGATIVE) U Benzodiazepines Scrn Negative (NEGATIVE) Urine Cocaine Screen Negative (NEGATIVE) U Marijuana (THC) Screen Negative (NEGATIVE) Ethyl Alcohol (0) mg/dL 08/12/21 08/12/21 08/12/21 Range/Units 03:05 03:05 03:05 WBC (5.0-10.0) 10^3/uL RBC (4.6-6.2) 10^6/uL Hgb (14.0-18.0) g/dL Hct (40.0-54.0) % MCV (80-100) fL MCH (27.0-34.0) pg MCHC (33.0-35.0) g/dL Plt Count (150-450) 10^3/uL Neut % (Auto) (42.2-75.2) % Lymph % (Auto) (20.5-50.1) % [place] % (Auto) (2-8) % Eos % (Auto) (1.0-3.0) % Baso % (Auto) (0.0-1.0) % Add Manual Diff Neutrophils % (Manual) (42-75) % Band Neutrophils % % Lymphocytes % (Manual) (20-50) % Atypical Lymphs % % Monocytes % (Manual) (2-8) % Eosinophils % (Manual) (1-3) % Sodium 143 (136-145) mmol/L Potassium 4.0 (3.5-5.1) mmol/L Chloride 102 (98-107) mmol/L Carbon Dioxide 14 L D (21-32) mmol/L Anion Gap 31.0 H (7-13) mEq/L BUN 18 (7-18) mg/dL Creatinine 1.38 H (0.70-1.30) mg/dL Est Cr Clr Drug Dosing TNP Estimated GFR (MDRD) 57 BUN/Creatinine Ratio 13.0 (No establ ref range) Glucose 303 H (70-99) mg/dL Calcium 9.5 (8.5-10.1) mg/dL Total Bilirubin 0.3 (0.2-1.0) mg/dL Direct Bilirubin 0.1 (0.0-0.2) mg/dL AST 69 H (15-37) U/L ALT 143 H (16-63) U/L Alkaline Phosphatase 90 (46-116) U/L C-Reactive Protein 1.8 H (0.0-0.9) mg/dL Total Protein 8.5 H (6.4-8.2) g/dL Albumin 3.6 (3.4-5.0) g/dL Globulin 4.9 Albumin/Globulin Ratio 0.7 Urine Color (YELLOW) Urine Appearance (CLEAR) Urine pH (5.0-9.0) Ur Specific [place] (1.005-1.030) Urine Protein (NEGATIVE) Urine Glucose (UA) (NEGATIVE) Urine Ketones (NEGATIVE) Urine Occult Blood (NEGATIVE) Urine Nitrite (NEGATIVE) Urine Bilirubin (NEGATIVE) Urine Urobilinogen (0.2-1.0) mg/dL Ur Leukocyte Esterase (NEGATIVE) Urine Opiates Screen (NEGATIVE) Ur Oxycodone Screen (NEGATIVE) Urine Methadone Screen (NEGATIVE) Ur Barbiturates Screen (NEGATIVE) Phenytoin 2 L (10-20 (Therapeutic)) ug/mL U Tricyclic Antidepress (NEGATIVE) Ur Phencyclidine Scrn (NEGATIVE) Ur Amphetamine Screen (NEGATIVE) U Methamphetamines Scrn (NEGATIVE) Urine MDMA Screen (NEGATIVE) U Benzodiazepines Scrn (NEGATIVE) Urine Cocaine Screen (NEGATIVE) U Marijuana (THC) Screen (NEGATIVE) Ethyl Alcohol < 3 (0) mg/dL Meds: Medications Generic Name Dose Route Start Last Admin Trade Name Freq PRN Reason Stop Dose Admin Dextrose/Water 25 ml 08/12/21 04:10 50% Dextrose In Water 50 Ml Syringe IVPUSH ASDIRECTED PRN Hypoglycemia BS<70 Insulin Human Lispro 0 unit 08/12/21 08:00 Insulin Lispro 100 Units/Ml 3 Ml Vial SUBCUT [facility]ED [facility] Protocol Levetiracetam 1,500 mg 08/12/21 09:00 Levetiracetam 500 Mg Tab PO BID ANUEL Lorazepam 1 mg 08/12/21 04:12 Lorazepam 2 Mg/Ml Sdv IVPUSH Q1H PRN agitation, seizure Phenytoin Sodium 300 mg 08/12/21 21:00 Phenytoin 100 Mg Cap.Er PO BEDTIME ANUEL Discontinued Medications Generic Name Dose Route Start Last Admin Trade Name Freq PRN Reason Stop Dose Admin Phenytoin Sodium 1,000 mg/ 120 mls @ 240 mls/hr 08/12/21 02:56 08/12/21 03:24 Sodium Chloride IV 08/12/21 02:57 240 mls/hr ONETIME ONE Administration Sodium Chloride 1,000 mls @ 999 mls/hr 08/12/21 03:07 Normal Saline IV 08/12/21 04:07 .BOLUS ONE Lorazepam Confirm 08/12/21 03:14 08/12/21 03:56 Lorazepam 2 Mg/Ml Sdv Administered 08/12/21 03:15 Not Given Dose 2 mg .ROUTE .STK-MED ONE Lorazepam Confirm 08/12/21 03:21 08/12/21 03:56 Lorazepam 2 Mg/Ml Sdv Administered 08/12/21 03:22 Not Given Dose 2 mg .ROUTE .STK-MED ONE Lorazepam 2 mg 08/12/21 03:24 08/12/21 03:14 Lorazepam 2 Mg/Ml Sdv IVPUSH 08/12/21 03:25 2 mg ONETIME ONE Administration Lorazepam 1 mg 08/12/21 03:25 08/12/21 03:19 Lorazepam 2 Mg/Ml Sdv IVPUSH 08/12/21 03:26 1 mg ONETIME ONE Administration Lorazepam 2 mg 08/12/21 03:30 08/12/21 03:38 Lorazepam 2 Mg/Ml Sdv IVPUSH 08/12/21 03:31 2 mg ONETIME ONE Administration - Radiology Interpretation Free Text/Narrative:: Head CT wo contrast: [facility] [place] [facility] Final Radiology Report Call: [phone] assistance Online chat: [email or web address] Name: GABBI ANN Age: 41Years M Date: 08/12/2021 SSN: -- : [id number] Study: CT HEAD WO CONT Requesting Physician: Marilee Louise Images: 304 Addl Studies: Provided Clinical History: seizures Contrast: Without Contrast Medium: Contrast Amount: Contrast Method: CONFIDENTIALITY STATEMENT This report is intended only for use by the referring physician, and only in accordance with law. If you received this in error, call [phone]. Page 1 of 1 PROCEDURE INFORMATION: Exam: CT Head Without Contrast Exam date and time: 08/12/2021 3:37 AM Age: 41 years old Clinical indication: Other: Seizure; Additional info: Seizures TECHNIQUE: Imaging protocol: Computed tomography of the head without contrast. Radiation optimization: All CT scans at this facility use at least one of these dose optimization techniques: automated exposure control; mA and/or kV adjustment per patient size (includes targeted exams where dose is matched to clinical indication); or iterative reconstruction. COMPARISON: No relevant prior studies available. FINDINGS: Brain: Normal. No hemorrhage. Unremarkable white matter. No mass effect. Cerebral ventricles: No ventriculomegaly. Paranasal sinuses: Mucosal polyp in the right maxillary sinus. Mastoid air cells: Visualized mastoid air cells are well aerated. Bones/joints: Unremarkable. No acute fracture. Soft tissues: Unremarkable. IMPRESSION: No acute intracranial abnormality. Thank you for allowing us to participate in the care of your patient. Dictated and Authenticated by: Neisha Carrero MD 08/12/2021 4:13 AM Central Time ([place] & [place]) Chest xray: [facility] Final Radiology Report Call: [phone] assistance Online chat: [email or web address] Name: GABBI ANN Age: 41Years M Date: 08/12/2021 SSN: -- : [id number] Study: CR CHEST 1V FRONTAL Requesting Physician: Marilee Louise Images: 1 Addl Studies: Provided Clinical History: seizure, covid Contrast: Contrast Medium: Contrast Amount: Contrast Method: CONFIDENTIALITY STATEMENT This report is intended only for use by the referring physician, and only in accordance with law. If you received this in error, call [phone]. Page 1 of 1 PROCEDURE INFORMATION: Exam: XR Chest Exam date and time: 08/12/2021 3:53 AM Age: 41 years old Clinical indication: Other: Covid; Additional info: Seizure, covid TECHNIQUE: Imaging protocol: XR of the chest. Views: 1 view. COMPARISON: CR Chest 1V Frontal 08/06/2021 9:53 PM FINDINGS: Lungs: Faint diffuse bilateral patchy pulmonary opacities. Pleural spaces: Unremarkable. No pleural effusion. No pneumothorax. Heart/Mediastinum: Unremarkable. No cardiomegaly. Bones/joints: Unremarkable. IMPRESSION: Faint diffuse bilateral pulmonary opacities. Thank you for allowing us to participate in the care of your patient. Dictated and Authenticated by: Neisha Carrero MD 08/12/2021 4:14 AM Central Time ([place] & [place]) See rad report - Re-Assessments/Exams Free Text/Narrative Re-Assessment/Exam: 08/12/21 03:59 Discussed patient case with Dr. Guillen who agreed to accept the patient for inpatient admission. Departure - Departure Time of Disposition: 04:01 Disposition: Admitted As Inpatient 65 Condition: Fair Clinical Impression: Seizure, COVID - Discharge Information *PRESCRIPTION DRUG MONITORING PROGRAM REVIEWED*: No *COPY OF PRESCRIPTION DRUG MONITORING REPORT IN PATIENT [place]: No Sepsis Event Note (ED) - Focused Exam Vital Signs: Vital Signs Temp Pulse Resp BP Pulse Ox 08/12/21 03:13 98.4 F 124 H 16 145/107 H 95 - My Orders Last 24 Hours: My Active Orders 08/12/21 02:54 Blood Culture x2 Reflex Set [OM.PC] Stat 08/12/21 02:56 UA W/MICROSCOPIC [URIN] Stat 08/12/21 03:05 CULTURE BLOOD [BC] Stat LEVETIRACETAM, S [REF] Stat 08/12/21 03:15 CULTURE BLOOD [BC] Stat - Assessment/Plan Last 24 Hours: My Active Orders 08/12/21 02:54 Blood Culture x2 Reflex Set [OM.PC] Stat 08/12/21 02:56 UA W/MICROSCOPIC [URIN] Stat 08/12/21 03:05 CULTURE BLOOD [BC] Stat LEVETIRACETAM, S [REF] Stat 08/12/21 03:15 CULTURE BLOOD [BC] Stat
[2021-08-12] MEDS ORDERED: LORazepam 2 MG/ML SDV ONE ×2 (03:14→03:21)
[2021-08-12] MEDS ORDERED: LORazepam 2 MG/ML SDV IVPUSH ONE ×4 (03:24→03:56)
[2021-08-12 03:28] LABS: CHLORIDE,CL 102 mmol/L (98-107); SODIUM,NA 143 mmol/L (136-145)
[2021-08-12] MEDS ORDERED: 50% Dextrose in Water 50 ML Syringe IVPUSH PRN (04:10)
[2021-08-12 04:11] LABS: METHAMPHETAMINES,URINE NEGATIVE (NEGATIVE)
[2021-08-12 04:12] LABS: AMPHETAMINES,URINE NEGATIVE (NEGATIVE); BARBITURATES,URINE POSITIVE (NEGATIVE); BENZODIAZEPINE,URINE NEGATIVE (NEGATIVE); MDMA (ECSTASY), URINE NEGATIVE (NEGATIVE); METHADONE,URINE NEGATIVE (NEGATIVE); OPIATES,URINE NEGATIVE (NEGATIVE); OXYCODONE,URINE NEGATIVE (NEGATIVE); PHENCYCLIDINE,URINE NEGATIVE (NEGATIVE); TCA,URINE NEGATIVE (NEGATIVE)
[2021-08-12] MEDS ORDERED: LORazepam 2 MG/ML SDV IVPUSH PRN (04:12)
--- NOTE | 2021-08-12 04:14 | CT ---
PROCEDURE INFORMATION: Exam: CT Head Without Contrast Exam date and time: 08/12/2021 3:37 AM Age: 41 years old Clinical indication: Other: Seizure; Additional info: Seizures TECHNIQUE: Imaging protocol: Computed tomography of the head without contrast. Radiation optimization: All CT scans at this facility use at least one of these dose optimization techniques: automated exposure control; mA and/or kV adjustment per patient size (includes targeted exams where dose is matched to clinical indication); or iterative reconstruction. COMPARISON: No relevant prior studies available. FINDINGS: Brain: Normal. No hemorrhage. Unremarkable white matter. No mass effect. Cerebral ventricles: No ventriculomegaly. Paranasal sinuses: Mucosal polyp in the right maxillary sinus. Mastoid air cells: Visualized mastoid air cells are well aerated. Bones/joints: Unremarkable. No acute fracture. Soft tissues: Unremarkable. IMPRESSION: No acute intracranial abnormality.
--- NOTE | 2021-08-12 04:15 | CR ---
PROCEDURE INFORMATION: Exam: XR Chest Exam date and time: 08/12/2021 3:53 AM Age: 41 years old Clinical indication: Other: Covid; Additional info: Seizure, covid TECHNIQUE: Imaging protocol: XR of the chest. Views: 1 view. COMPARISON: CR Chest 1V Frontal 08/06/2021 9:53 PM FINDINGS: Lungs: Faint diffuse bilateral patchy pulmonary opacities. Pleural spaces: Unremarkable. No pleural effusion. No pneumothorax. Heart/Mediastinum: Unremarkable. No cardiomegaly. Bones/joints: Unremarkable. IMPRESSION: Faint diffuse bilateral pulmonary opacities.
[2021-08-12] MEDS ORDERED: Temazepam 15 MG Cap PO PRN (04:40)
[2021-08-12] MEDS ORDERED: Acetaminophen 325 MG Tab PO PRN (04:40)
[2021-08-12] MEDS ORDERED: Loperamide 2 MG Cap PO PRN (04:40)
[2021-08-12] MEDS ORDERED: Ondansetron 4 MG/2 ML SDV IVPUSH PRN (04:40)
[2021-08-12] MEDS ORDERED: oxyCODONE 5 MG Tab PO PRN (04:40)
--- NOTE | 2021-08-12 04:47 | PCM.HP ---
H&P History of Present Illness - General Date of Service: 08/12/21 Admit Problem/Dx: Admission Diagnosis/Problem Admission Diagnosis/Problem Seizure Source of Information: Old Records, Provider - History of Present Illness Initial Comments - Free Text/Narative: h/o seizure dx, htn, dyslipidemia Symptom onset: about 08/01/21 cough, diarrhea, Covid test positive: 08/02/21 Abx treatment 08/09 presented with seizure x5-6 times - tonic-clonic agitated given Ativan now sleeping, can not give info - Related Data Allergies/Adverse Reactions: Allergies Allergy/AdvReac Type Severity Reaction Status Date / Time grass pollen Allergy Sneezing Verified 08/09/21 11:07 Home Medications: Home Meds Losartan [Cozaar] 50 mg PO DAILY 11/16/20 [History] atorvaSTATin Calcium [Lipitor] 20 mg PO BEDTIME 11/16/20 [History] levETIRAcetam [Keppra] 1,500 mg PO BID 11/16/20 [History] metFORMIN HCl [Metformin HCl] 1,000 mg PO BID 11/16/20 [History] Phenytoin Sodium Extended [Dilantin] 300 mg PO BEDTIME 03/14/21 [History] Past Medical History HEENT History: Reports: None Cardiovascular History: Reports: High Cholesterol, Hypertension Other Cardiovascular History: states that he has a bad heart, states that he is supposed to be on blood thinners but has never gotten them Respiratory History: Reports: Other (See Below) Other Respiratory History: states he has a black spot on his R) lung. Covid 19 08/02/21 Gastrointestinal History: Reports: Pancreatitis Genitourinary History: Reports: None Musculoskeletal History: Reports: Arthritis Neurological History: Reports: Seizure Other Neuro History: last seizure March 2021 Psychiatric History: Reports: None Endocrine/Metabolic History: Reports: Diabetes, Type II Hematologic History: Reports: None Immunologic History: Reports: None Oncologic (Cancer) History: Reports: None Dermatologic History: Reports: None - Infectious Disease History Infectious Disease History: Reports: Chicken Pox, Novel Coronavirus - Past Surgical History Head Surgeries/Procedures: Reports: None HEENT Surgical History: Reports: None Cardiovascular Surgical History: Reports: None Respiratory Surgical History: Reports: None GI Surgical History: Reports: Colonoscopy Male Surgical History: Reports: None Endocrine Surgical History: Reports: None Neurological Surgical History: Reports: None Musculoskeletal Surgical History: Reports: None Dermatological Surgical History: Reports: None Social & Family History - Caffeine Use Caffeine Use: Reports: Coffee Caffeine Use Comment: LARGE CUP IN THE AM H&P Review of Systems - Review of Systems: Review Of Systems: Unable To Obtain Reason Not Obtained: lethargic Exam - Exam Exam: See Below - Vital Signs Vital Signs: Last Vital Signs Temp 98.0 F 08/12/21 04:40 Pulse 94 08/12/21 04:40 Resp 22 H 08/12/21 04:40 BP 135/83 08/12/21 04:40 Pulse Ox 94 L 08/12/21 04:40 Weight: 218 lb - Exam Quality Assessment: No: Supplemental Oxygen General: Sedated Neck: Supple Lungs: Clear to Auscultation, Normal Respiratory Effort Cardiovascular: Regular Rate, Regular Rhythm GI/Abdominal Exam: Normal Bowel Sounds, Soft, Non-Tender Extremities: No Pedal Edema - Patient Data Lab Results Last 24 hrs: Laboratory Results - last 24 hr 08/12/21 08/12/21 08/12/21 Range/Units 02:55 02:56 03:05 WBC 12.3 H (5.0-10.0) 10^3/uL RBC 5.23 (4.6-6.2) 10^6/uL Hgb 16.3 (14.0-18.0) g/dL Hct 45.7 (40.0-54.0) % MCV 87.4 (80-100) fL MCH 31.2 (27.0-34.0) pg MCHC 35.7 H (33.0-35.0) g/dL Plt Count 339 D (150-450) 10^3/uL Neut % (Auto) 71.7 (42.2-75.2) % Lymph % (Auto) 21.6 (20.5-50.1) % [place] % (Auto) 5.6 (2-8) % Eos % (Auto) 0.9 L (1.0-3.0) % Baso % (Auto) 0.2 (0.0-1.0) % Add Manual Diff Yes Neutrophils % (Manual) 70 (42-75) % Band Neutrophils % 6 % Lymphocytes % (Manual) 21 (20-50) % Atypical Lymphs % 0 % Monocytes % (Manual) 1 L (2-8) % Eosinophils % (Manual) 2 (1-3) % Sodium (136-145) mmol/L Potassium (3.5-5.1) mmol/L Chloride (98-107) mmol/L Carbon Dioxide (21-32) mmol/L Anion Gap (7-13) mEq/L BUN (7-18) mg/dL Creatinine (0.70-1.30) mg/dL Est Cr Clr Drug Dosing Estimated GFR (MDRD) BUN/Creatinine Ratio (No establ ref range) Glucose (70-99) mg/dL Calcium (8.5-10.1) mg/dL Total Bilirubin (0.2-1.0) mg/dL Direct Bilirubin (0.0-0.2) mg/dL AST (15-37) U/L ALT (16-63) U/L Alkaline Phosphatase (46-116) U/L C-Reactive Protein (0.0-0.9) mg/dL Total Protein (6.4-8.2) g/dL Albumin (3.4-5.0) g/dL Globulin Albumin/Globulin Ratio Urine Color Yellow (YELLOW) Urine Appearance Slightly cloudy (CLEAR) Urine pH 5.0 (5.0-9.0) Ur Specific [place] >= 1.030 (1.005-1.030) Urine Protein 100 H (NEGATIVE) Urine Glucose (UA) 500 H (NEGATIVE) Urine Ketones Trace H (NEGATIVE) Urine Occult Blood Trace-intact H (NEGATIVE) Urine Nitrite Negative (NEGATIVE) Urine Bilirubin Negative (NEGATIVE) Urine Urobilinogen 0.2 (0.2-1.0) mg/dL Ur Leukocyte Esterase Negative (NEGATIVE) Urine Opiates Screen Negative (NEGATIVE) Ur Oxycodone Screen Negative (NEGATIVE) Urine Methadone Screen Negative (NEGATIVE) Ur Barbiturates Screen Positive H (NEGATIVE) Phenytoin (10-20 (Therapeutic)) ug/mL U Tricyclic Antidepress Negative (NEGATIVE) Ur Phencyclidine Scrn Negative (NEGATIVE) Ur Amphetamine Screen Negative (NEGATIVE) U Methamphetamines Scrn Negative (NEGATIVE) Urine MDMA Screen Negative (NEGATIVE) U Benzodiazepines Scrn Negative (NEGATIVE) Urine Cocaine Screen Negative (NEGATIVE) U Marijuana (THC) Screen Negative (NEGATIVE) Ethyl Alcohol (0) mg/dL 08/12/21 08/12/21 08/12/21 Range/Units 03:05 03:05 03:05 WBC (5.0-10.0) 10^3/uL RBC (4.6-6.2) 10^6/uL Hgb (14.0-18.0) g/dL Hct (40.0-54.0) % MCV (80-100) fL MCH (27.0-34.0) pg MCHC (33.0-35.0) g/dL Plt Count (150-450) 10^3/uL Neut % (Auto) (42.2-75.2) % Lymph % (Auto) (20.5-50.1) % [place] % (Auto) (2-8) % Eos % (Auto) (1.0-3.0) % Baso % (Auto) (0.0-1.0) % Add Manual Diff Neutrophils % (Manual) (42-75) % Band Neutrophils % % Lymphocytes % (Manual) (20-50) % Atypical Lymphs % % Monocytes % (Manual) (2-8) % Eosinophils % (Manual) (1-3) % Sodium 143 (136-145) mmol/L Potassium 4.0 (3.5-5.1) mmol/L Chloride 102 (98-107) mmol/L Carbon Dioxide 14 L D (21-32) mmol/L Anion Gap 31.0 H (7-13) mEq/L BUN 18 (7-18) mg/dL Creatinine 1.38 H (0.70-1.30) mg/dL Est Cr Clr Drug Dosing TNP Estimated GFR (MDRD) 57 BUN/Creatinine Ratio 13.0 (No establ ref range) Glucose 303 H (70-99) mg/dL Calcium 9.5 (8.5-10.1) mg/dL Total Bilirubin 0.3 (0.2-1.0) mg/dL Direct Bilirubin 0.1 (0.0-0.2) mg/dL AST 69 H (15-37) U/L ALT 143 H (16-63) U/L Alkaline Phosphatase 90 (46-116) U/L C-Reactive Protein 1.8 H (0.0-0.9) mg/dL Total Protein 8.5 H (6.4-8.2) g/dL Albumin 3.6 (3.4-5.0) g/dL Globulin 4.9 Albumin/Globulin Ratio 0.7 Urine Color (YELLOW) Urine Appearance (CLEAR) Urine pH (5.0-9.0) Ur Specific [place] (1.005-1.030) Urine Protein (NEGATIVE) Urine Glucose (UA) (NEGATIVE) Urine Ketones (NEGATIVE) Urine Occult Blood (NEGATIVE) Urine Nitrite (NEGATIVE) Urine Bilirubin (NEGATIVE) Urine Urobilinogen (0.2-1.0) mg/dL Ur Leukocyte Esterase (NEGATIVE) Urine Opiates Screen (NEGATIVE) Ur Oxycodone Screen (NEGATIVE) Urine Methadone Screen (NEGATIVE) Ur Barbiturates Screen (NEGATIVE) Phenytoin 2 L (10-20 (Therapeutic)) ug/mL U Tricyclic Antidepress (NEGATIVE) Ur Phencyclidine Scrn (NEGATIVE) Ur Amphetamine Screen (NEGATIVE) U Methamphetamines Scrn (NEGATIVE) Urine MDMA Screen (NEGATIVE) U Benzodiazepines Scrn (NEGATIVE) Urine Cocaine Screen (NEGATIVE) U Marijuana (THC) Screen (NEGATIVE) Ethyl Alcohol < 3 (0) mg/dL Result Diagrams: 08/12/21 03:05 08/12/21 03:05 - Problem List (1) Diabetes SNOMED Code(s): 95772467 ICD Code: E11.9 - TYPE 2 DIABETES MELLITUS WITHOUT COMPLICATIONS Status: Acute Current Visit: Yes (2) Pneumonia due to COVID-19 virus SNOMED Code(s): 715480103508656670 ICD Code: U07.1 - COVID-19; J12.82 - PNEUMONIA DUE TO CORONAVIRUS DISEASE 2019 Status: Acute Current Visit: Yes (3) Seizure SNOMED Code(s): 77886532 ICD Code: R56.9 - UNSPECIFIED CONVULSIONS Status: Acute Current Visit: Yes Problem List Initiated/Reviewed/Updated: Yes Orders Last 24hrs: Active Orders 24 hr Category Date Time Status Admission Diagnosis [ADT] Stat ADT 08/12/21 04:00 Ordered Admission Status [Patient Status] [ADT] Routine ADT 08/12/21 04:00 Active Patient Status [ADT] Routine ADT 08/12/21 03:53 Active Blood Glucose Check, Bedside [RC] WITHMEALSANDBED Care 08/12/21 04:10 Active Oxygen Therapy [] PRN Care 08/12/21 04:40 Ordered Up With Assistance [RC] ASDIRECTED Care 08/12/21 04:40 Ordered VTE/DVT Education [RC] PER UNIT ROUTINE Care 08/12/21 04:40 Ordered Vital Signs [RC] Q4H Care 08/12/21 04:40 Ordered Clear Liquid Diet [DIET] Diet 08/12/21 Breakfast Ordered BASIC METABOLIC PANEL,BMP [CHEM] AM Lab 08/13/21 05:11 Ordered BASIC METABOLIC PANEL,BMP [CHEM] AM Lab 08/14/21 05:11 Ordered BASIC METABOLIC PANEL,BMP [CHEM] AM Lab 08/15/21 05:11 Ordered BASIC METABOLIC PANEL,BMP [CHEM] AM Lab 08/16/21 05:11 Ordered BASIC METABOLIC PANEL,BMP [CHEM] AM Lab 08/17/21 05:11 Ordered CBC WITH AUTO DIFF [HEME] AM Lab 08/13/21 05:11 Ordered CBC WITH AUTO DIFF [HEME] AM Lab 08/14/21 05:11 Ordered CBC WITH AUTO DIFF [HEME] AM Lab 08/15/21 05:11 Ordered CBC WITH AUTO DIFF [HEME] AM Lab 08/16/21 05:11 Ordered CBC WITH AUTO DIFF [HEME] AM Lab 08/17/21 05:11 Ordered CULTURE BLOOD [BC] Stat Lab 08/12/21 03:05 Received CULTURE BLOOD [BC] Stat Lab 08/12/21 03:15 Received D-DIMER QUANTITATIVE [COAG] Routine Lab 08/12/21 03:05 Stop Req DD [D-DIMER QUANTITATIVE] [COAG] AM Lab 08/13/21 05:11 Ordered DD [D-DIMER QUANTITATIVE] [COAG] AM Lab 08/14/21 05:11 Ordered DD [D-DIMER QUANTITATIVE] [COAG] AM Lab 08/15/21 05:11 Ordered HEPATIC FUNCTION PANEL,[facility] [CHEM] AM Lab 08/13/21 05:11 Ordered HEPATIC FUNCTION PANEL,[facility] [CHEM] AM Lab 08/14/21 05:11 Ordered HEPATIC FUNCTION PANEL,[facility] [CHEM] AM Lab 08/15/21 05:11 Ordered HEPATIC FUNCTION PANEL,[facility] [CHEM] AM Lab 08/16/21 05:11 Ordered LEVETIRACETAM, S [REF] Stat Lab 08/12/21 03:05 Received PROCALCITONIN [REF] Routine Lab 08/12/21 03:05 Received UA W/MICROSCOPIC [URIN] Stat Lab 08/12/21 02:56 Results Acetaminophen [TylenoL] Med 08/12/21 04:40 Ordered 650 mg PO Q4H PRN Dextrose 50% in Water Med 08/12/21 04:10 Active 25 ml IVPUSH ASDIRECTED PRN Enoxaparin [Lovenox] Med 08/12/21 09:00 Ordered 40 mg SUBCUT DAILY Insulin Lispro [HumaLOG] Med 08/12/21 08:00 Active See Protocol SUBCUT WITHMEALSANDBED LORazepam [Ativan] Med 08/12/21 04:12 Active 1 mg IVPUSH Q1H PRN Loperamide [Imodium] Med 08/12/21 04:40 Ordered 2 mg PO Q6H PRN Ondansetron [Zofran] Med 08/12/21 04:40 Ordered 4 mg IVPUSH Q6H PRN Phenytoin Med 08/12/21 21:00 Active 300 mg PO BEDTIME Temazepam [Restoril] Med 08/12/21 04:40 Ordered 15 mg PO BEDTIME PRN dexAMETHasone [Decadron] Med 08/12/21 09:00 Ordered 6 mg IVPUSH DAILY levETIRAcetam [Keppra] Med 08/12/21 09:00 Active 1,500 mg PO BID oxyCODONE Med 08/12/21 04:40 Ordered 5 mg PO Q4H PRN Blood Culture x2 Reflex Set [OM.PC] Stat Oth 08/12/21 02:54 Ordered Seizure Precautions [OM.PC] Routine Oth 08/12/21 04:11 Ordered Resuscitation Status Routine Resus Stat 08/12/21 04:40 Ordered Medication Orders Dexamethasone (Dexamethasone 4 Mg/Ml Sdv) 6 mg IVPUSH DAILY ANUEL Dextrose/Water (50% Dextrose In Water 50 Ml Syringe) 25 ml IVPUSH ASDIRECTED AK N PRN Reason: Hypoglycemia BS<70 Insulin Human Lispro (Insulin Lispro 100 Units/Ml 3 Ml Vial) 0 unit SUBCUT WITHMEALSANDBED ANUEL; Protocol Levetiracetam (Levetiracetam 500 Mg Tab) 1,500 mg PO BID ANUEL Loperamide HCl (Loperamide 2 Mg Cap) 2 mg PO Q6H PRN PRN Reason: Diarrhea Lorazepam (Lorazepam 2 Mg/Ml Sdv) 1 mg IVPUSH Q1H PRN PRN Reason: agitation, seizure Phenytoin Sodium (Phenytoin 100 Mg Cap.Er) 300 mg PO BEDTIME ON LICENSE OF [facility] Assessment/Plan Comment:: h/o recent covid 19 pneumonia, diarrhea presented with seizure noted subtherapeutic phenytoin level Seizure With h/o epileptic sx. Has been on phenytoin, keppra Phenytoin level was low on presentation - might be due to recent diarrhea In ER received Ativan, phenytoin 1 gm iv Will resume phenytoin, keppra Ativan as needed Acute postictal delirium Use Ativan as needed Acute covid 19 infection and pneumonia Vaccination status: unknown Symptom onset: about 08/01/21 cough, diarrhea, Covid test positive: 08/02/21 Abx treatment 08/09 Treat with mvi /vit d Treat with dexamethasone Imodium as needed Follow daily cbc, bmp, trop, procal, ddimer Evaluations for concurrent bacterial pneumonia: Procalcitonin: pending Hold Abx for now Evaluations for thrombotic complications Ddimer: pending Prophylaxis: use lovenox Leukocytosis Obtain blood c Obtain ua, cx Metabolic acidosis, Clarence Likely due to seizure Will hydrate well Hold cozaar Follow elytes and renal fx Htn Hold cozaar while with renal failure Diabetes Hold metformin Check BS qac+ hs, Supplemental insulin as needed
[2021-08-12] MEDS: Dexamethasone 4 MG/ML SDV IVPUSH SCH (08:42)
[2021-08-12] MEDS: Enoxaparin 40 MG/0.4 ML Syringe SUBCUT SCH (08:43)
[2021-08-12] MEDS: levETIRAcetam 500 MG Tab PO SCH ×2 (08:44→21:34)
[2021-08-12] MEDS: Multivitamins, Therapeutic with Minerals Tab PO SCH (08:44)
[2021-08-12] MEDS: Cholecalciferol (Vitamin D3) 25 MCG Tab PO SCH (08:45)
[2021-08-12] MEDS: Insulin Lispro 100 Units/ML 3 ML Vial SUBCUT SCH ×4 (10:02→21:31)
[2021-08-12] MEDS ORDERED: Phenytoin 100 MG Cap.ER PO SCH (21:00)
[2021-08-13 06:54] LABS: ANION GAP 14.3 mEq/L (7-13); CHLORIDE,CL 104 mmol/L (98-107); SODIUM,NA 139 mmol/L (136-145)
[2021-08-13] MEDS: Insulin Lispro 100 Units/ML 3 ML Vial SUBCUT SCH ×2 (08:45→12:30)
[2021-08-13] MEDS: Enoxaparin 40 MG/0.4 ML Syringe SUBCUT SCH (08:46)
[2021-08-13] MEDS: Cholecalciferol (Vitamin D3) 25 MCG Tab PO SCH (08:47)
[2021-08-13] MEDS: levETIRAcetam 500 MG Tab PO SCH (08:47)
[2021-08-13] MEDS: Multivitamins, Therapeutic with Minerals Tab PO SCH (08:47)
[2021-08-13] MEDS: Dexamethasone 4 MG/ML SDV IVPUSH SCH (08:50)
[2021-08-13] MEDS ORDERED: Potassium Chloride 10 MEQ Tab.ER PO ONE (09:45)
--- NOTE | 2021-08-13 10:45 | PCM.DCSUM1 ---
Discharge Summary - Hospital Course Free Text/Narrative:: h/o recent covid 19 pneumonia, diarrhea presented with seizure noted subtherapeutic phenytoin level Seizure With h/o epileptic sx. Has been on phenytoin, keppra Phenytoin level was low on presentation - might be due to recent diarrhea In ER received Ativan, phenytoin 1 gm iv no further seizure Will resume phenytoin, keppra f/up with PMD Acute postictal delirium resolved Acute covid 19 infection and pneumonia Vaccination status: unknown Symptom onset: about 08/01/21 cough, diarrhea, Covid test positive: 08/02/21 Abx treatment 08/09 not hypoxemic supportive treatment Imodium as needed Leukocytosis resolved Metabolic acidosis, Clarence Likely due to seizure resolved with hydration Diabetes resume metformin Diagnosis: Stroke: No - Discharge Data Discharge Date: 08/13/21 Discharge Disposition: Home, Self-Care 01 Condition: Good - Referral to Home Health Primary Care Physician: [facility] - Discharge Diagnosis/Problem(s) (1) Diabetes SNOMED Code(s): 72938162 ICD Code: E11.9 - TYPE 2 DIABETES MELLITUS WITHOUT COMPLICATIONS Status: Acute Current Visit: Yes (2) Pneumonia due to COVID-19 virus SNOMED Code(s): 701930908684104498 ICD Code: U07.1 - COVID-19; J12.82 - PNEUMONIA DUE TO CORONAVIRUS DISEASE 2018 Status: Acute Current Visit: Yes (3) Seizure SNOMED Code(s): 90158112 ICD Code: R56.9 - UNSPECIFIED CONVULSIONS Status: Acute Current Visit: Yes - Patient Instructions Diet: Heart Healthy Diet Activity: As Tolerated - Discharge Plan *PRESCRIPTION DRUG MONITORING PROGRAM REVIEWED*: No *COPY OF PRESCRIPTION DRUG MONITORING REPORT IN PATIENT RORO: No Prescriptions/Med Rec: Multivitamins/Minerals [Vitamins and Minerals] 1 tab PO WITHBREAKFAST #30 tablet Home Medications: Home Meds levETIRAcetam [Keppra] 1,500 mg PO BID 11/16/20 [History] metFORMIN HCl [Metformin HCl] 1,000 mg PO BID 11/16/20 [History] Phenytoin Sodium Extended [Dilantin] 300 mg PO BEDTIME 03/14/21 [History] Loperamide [Imodium] 2 mg PO Q6H PRN cap 08/13/21 [Rx] Multivitamins/Minerals [Vitamins and Minerals] 1 tab PO WITHBREAKFAST #30 tablet 08/13/21 [Rx] Oxygen Therapy Mode: Room Air Forms: ED Department Discharge Referrals: [place] [Primary Care Provider] - - Discharge Summary/Plan Comment DC Time >30 min.: No Total # of Minutes for Discharge Time: 20 min - General Info Date of Service: 08/13/21 Functional Status: Reports: Tolerating Diet, Ambulating - Review of Systems Pulmonary: Denies: Shortness of Breath Cardiovascular: Denies: Chest Pain Gastrointestinal: Denies: Abdominal Pain, Diarrhea Neurological: Denies: Confusion - Patient Data Vitals - Most Recent: Last Vital Signs Temp 97.0 F 08/13/21 08:00 Pulse 82 08/13/21 08:00 Resp 13 08/13/21 08:00 BP 138/96 H 08/13/21 08:00 Pulse Ox 97 08/13/21 08:00 Weight - Most Recent: 218 lb I&O - Last 24 hours: Intake & Output 08/12/21 08/13/21 08/13/21 22:59 06:59 14:59 Intake Total 720 Balance 720 Lab Results - Last 24 hrs: Laboratory Results - last 24 hr 08/12/21 08/12/21 08/12/21 Range/Units 12:08 17:09 19:46 WBC (5.0-10.0) 10^3/uL RBC (4.6-6.2) 10^6/uL Hgb (14.0-18.0) g/dL Hct (40.0-54.0) % MCV (80-100) fL MCH (27.0-34.0) pg MCHC (33.0-35.0) g/dL Plt Count (150-450) 10^3/uL Neut % (Auto) (42.2-75.2) % Lymph % (Auto) (20.5-50.1) % [place] % (Auto) (2-8) % Eos % (Auto) (1.0-3.0) % Baso % (Auto) (0.0-1.0) % D-Dimer, Quantitative (0-400) ng/mL Sodium (136-145) mmol/L Potassium (3.5-5.1) mmol/L Chloride (98-107) mmol/L Carbon Dioxide (21-32) mmol/L Anion Gap (7-13) mEq/L BUN (7-18) mg/dL Creatinine (0.70-1.30) mg/dL Est Cr Clr Drug Dosing mL/min Estimated GFR (MDRD) Glucose (70-99) mg/dL POC Glucose 149 H 135 H 166 H (70-99) mg/dL Calcium (8.5-10.1) mg/dL Total Bilirubin (0.2-1.0) mg/dL Direct Bilirubin (0.0-0.2) mg/dL Indirect Bilirubin AST (15-37) U/L ALT (16-63) U/L Alkaline Phosphatase (46-116) U/L Total Protein (6.4-8.2) g/dL Albumin (3.4-5.0) g/dL Globulin Albumin/Globulin Ratio 08/13/21 08/13/21 08/13/21 Range/Units 06:20 06:20 06:20 WBC 6.7 (5.0-10.0) 10^3/uL RBC 4.62 (4.6-6.2) 10^6/uL Hgb 14.3 D (14.0-18.0) g/dL Hct 40.4 (40.0-54.0) % MCV 87.4 (80-100) fL MCH 31.0 (27.0-34.0) pg MCHC 35.4 H (33.0-35.0) g/dL Plt Count 279 (150-450) 10^3/uL Neut % (Auto) 36.2 L (42.2-75.2) % Lymph % (Auto) 51.3 H (20.5-50.1) % [place] % (Auto) 10.3 H (2-8) % Eos % (Auto) 1.9 (1.0-3.0) % Baso % (Auto) 0.3 (0.0-1.0) % D-Dimer, Quantitative 262 (0-400) ng/mL Sodium 139 (136-145) mmol/L Potassium 3.3 L (3.5-5.1) mmol/L Chloride 104 (98-107) mmol/L Carbon Dioxide 24 (21-32) mmol/L Anion Gap 14.3 H (7-13) mEq/L BUN 11 (7-18) mg/dL Creatinine 0.76 (0.70-1.30) mg/dL Est Cr Clr Drug Dosing 155.45 mL/min Estimated GFR (MDRD) > 60 Glucose 180 H (70-99) mg/dL POC Glucose (70-99) mg/dL Calcium 8.8 (8.5-10.1) mg/dL Total Bilirubin 0.4 (0.2-1.0) mg/dL Direct Bilirubin 0.1 (0.0-0.2) mg/dL Indirect Bilirubin 0.3 AST 36 (15-37) U/L ALT 95 H (16-63) U/L Alkaline Phosphatase 67 (46-116) U/L Total Protein 7.1 (6.4-8.2) g/dL Albumin 3.1 L (3.4-5.0) g/dL Globulin 4.0 Albumin/Globulin Ratio 0.78 /15/ Range/Units 07:32 WBC (5.0-10.0) 10^3/uL RBC (4.6-6.2) 10^6/uL Hgb (14.0-18.0) g/dL Hct (40.0-54.0) % MCV (80-100) fL MCH (27.0-34.0) pg MCHC (33.0-35.0) g/dL Plt Count (150-450) 10^3/uL Neut % (Auto) (42.2-75.2) % Lymph % (Auto) (20.5-50.1) % [place] % (Auto) (2-8) % Eos % (Auto) (1.0-3.0) % Baso % (Auto) (0.0-1.0) % D-Dimer, Quantitative (0-400) ng/mL Sodium (136-145) mmol/L Potassium (3.5-5.1) mmol/L Chloride (98-107) mmol/L Carbon Dioxide (21-32) mmol/L Anion Gap (7-13) mEq/L BUN (7-18) mg/dL Creatinine (0.70-1.30) mg/dL Est Cr Clr Drug Dosing mL/min Estimated GFR (MDRD) Glucose (70-99) mg/dL POC Glucose 158 H (70-99) mg/dL Calcium (8.5-10.1) mg/dL Total Bilirubin (0.2-1.0) mg/dL Direct Bilirubin (0.0-0.2) mg/dL Indirect Bilirubin AST (15-37) U/L ALT (16-63) U/L Alkaline Phosphatase (46-116) U/L Total Protein (6.4-8.2) g/dL Albumin (3.4-5.0) g/dL Globulin Albumin/Globulin Ratio TRINI Results - Last 24 hrs: Microbiology 08/12/21 03:15 Aerobic Blood Culture - Preliminary Blood - Arm, Right NO GROWTH AFTER 1 DAY Anaerobic Blood Culture - Preliminary NO GROWTH AFTER 1 DAY 08/12/21 03:05 Aerobic Blood Culture - Preliminary Blood - Arm, Left NO GROWTH AFTER 1 DAY Anaerobic Blood Culture - Preliminary NO GROWTH AFTER 1 DAY Med Orders - Current: Current Medications Acetaminophen (Acetaminophen 325 Mg Tab) 650 mg PO Q4H PRN PRN Reason: Pain (Mild 1-3)/fever Cholecalciferol (Cholecalciferol (Vitamin D3) 25 Mcg Tab) 25 mcg PO DAILY [facility] Last Admin: 08/13/21 08:47 Dose: 25 mcg Documented by: Dexamethasone (Dexamethasone 4 Mg/Ml Sdv) 6 mg IVPUSH DAILY [facility] Last Admin: 08/13/21 08:50 Dose: 6 mg Documented by: Dextrose/Water (50% Dextrose In Water 50 Ml Syringe) 25 ml IVPUSH ASDIRECTED PRN PRN Reason: Hypoglycemia BS<70 Enoxaparin Sodium (Enoxaparin 40 Mg/0.4 Ml Syringe) 40 mg SUBCUT DAILY [facility] Last Admin: 08/13/21 08:46 Dose: 40 mg Documented by: Insulin Human Lispro (Insulin Lispro 100 Units/Ml 3 Ml Vial) 0 unit SUBCUT WITHMEALSANDBED [facility]; Protocol Last Admin: 08/13/21 08:45 Dose: 2 units Documented by: Levetiracetam (Levetiracetam 500 Mg Tab) 1,500 mg PO BID [facility] Last Admin: 08/13/21 08:47 Dose: 1,500 mg Documented by: Loperamide HCl (Loperamide 2 Mg Cap) 2 mg PO Q6H PRN PRN Reason: Diarrhea Lorazepam (Lorazepam 2 Mg/Ml Sdv) 1 mg IVPUSH Q1H PRN PRN Reason: agitation, seizure Multivitamins/Minerals (Multivitamins, Therapeutic With Minerals Tab) 1 tab PO WITHBREAKFAST [facility] Last Admin: 08/13/21 08:47 Dose: 1 tab Documented by: Ondansetron HCl (Ondansetron 4 Mg/2 Ml Sdv) 4 mg IVPUSH Q6H PRN PRN Reason: Nausea/Vomiting Oxycodone HCl (Oxycodone 5 Mg Tab) 5 mg PO Q4H PRN PRN Reason: Pain (moderate 4-6) Phenytoin Sodium (Phenytoin 100 Mg Cap.Er) 300 mg PO BEDTIME [facility] Last Admin: 08/12/21 21:34 Dose: 300 mg Documented by: Temazepam (Temazepam 15 Mg Cap) 15 mg PO BEDTIME PRN PRN Reason: Sleep Discontinued Medications Phenytoin Sodium 1,000 mg/ (Sodium Chloride) 120 mls @ 240 mls/hr IV ONETIME ONE Stop: 08/12/21 02:57 Last Admin: 08/12/21 03:24 Dose: 240 mls/hr Documented by: Sodium Chloride (Normal Saline) 1,000 mls @ 999 mls/hr IV .BOLUS ONE Stop: 08/12/21 04:07 Last Admin: 08/12/21 04:35 Dose: 999 mls/hr Documented by: Lorazepam (Lorazepam 2 Mg/Ml Sdv) Confirm Administered Dose 2 mg .ROUTE .STK-MED ONE Stop: 08/12/21 03:15 Last Admin: 08/12/21 03:56 Dose: Not Given Documented by: Lorazepam (Lorazepam 2 Mg/Ml Sdv) Confirm Administered Dose 2 mg .ROUTE .STK-MED ONE Stop: 08/12/21 03:22 Last Admin: 08/12/21 03:56 Dose: Not Given Documented by: Lorazepam (Lorazepam 2 Mg/Ml Sdv) 2 mg IVPUSH ONETIME ONE Stop: 08/12/21 03:25 Last Admin: 08/12/21 03:14 Dose: 2 mg Documented by: Lorazepam (Lorazepam 2 Mg/Ml Sdv) 1 mg IVPUSH ONETIME ONE Stop: 08/12/21 03:26 Last Admin: 08/12/21 03:19 Dose: 1 mg Documented by: Lorazepam (Lorazepam 2 Mg/Ml Sdv) 2 mg IVPUSH ONETIME ONE Stop: 08/12/21 03:31 Last Admin: 08/12/21 03:38 Dose: 2 mg Documented by: Potassium Chloride (Potassium Chloride 10 Meq Tab.Er) 40 meq PO ONETIME ONE Stop: 08/13/21 09:46 Last Admin: 08/13/21 10:31 Dose: 40 meq Documented by: - Exam Quality Assessment: Denies: Supplemental Oxygen General: Reports: Alert, Oriented Neck: Reports: Supple Lungs: Reports: Clear to Auscultation, Normal Respiratory Effort Cardiovascular: Reports: Regular Rate, Regular Rhythm GI/Abdominal Exam: Normal Bowel Sounds, Soft, Non-Tender Extremities: No Pedal Edema Skin: Reports: Warm, Dry Neurological: Reports: Other (no seizure since admission ) Psy/Mental Status: Reports: Alert, Normal Affect, Normal Mood
== END 2021-08-13 12:40 | disposition home or self-care (01) | DRG 53 ==
LOC: DL.ED 03:11 → DL.MS 03:53
PROVIDERS: ADMIT Internal Medicine; ATTEND Internal Medicine
PROC: 3E0333Z Introduction of Anti-inflammatory into Peripheral Vein, Percutaneous Approach (ICD-10-PCS; principal; 2021-08-13)
DX: G40.909 Epilepsy, unspecified, not intractable, without status epilepticus (principal); N17.9 Acute kidney failure, unspecified; U07.1 COVID-19; E87.2 Acidosis; J12.82 Pneumonia due to coronavirus disease 2019; E11.9 Type 2 diabetes mellitus without complications; E78.00 Pure hypercholesterolemia, unspecified; I10 Essential (primary) hypertension; M19.90 Unspecified osteoarthritis, unspecified site; Z79.84 Long term (current) use of oral hypoglycemic drugs; Z79.899 Other long term (current) drug therapy; Z88.8 Allergy status to other drugs, medicaments and biological substances; Z28.82 Immunization not carried out because of caregiver refusal
CPT/HCPCS: 36415; 70450; 71045; 80048; 80053; 80076; 80177; 80185; 80305-QW; 80307; 81001; 82248; 82947; 84145; 85025; 85379; 86140; 87040; 93005; 96374; 96375; 99221; 99238; 99285-25; A9270-GY; J1100; J1165; J1650; J1815-GY; J2060; J7030

== ENCOUNTER 2022-02-24 17:42 | Observation (INO) | payer BC ==
[2022-02-24 18:30] LABS: ANION GAP 14.8 mEq/L (7-13); CHLORIDE,CL 102 mmol/L (98-107); SODIUM,NA 139 mmol/L (136-145)
[2022-02-24] MEDS ORDERED: Sodium Chloride 0.9% 1,000 ML IV ONE ×2 (18:47→20:41)
[2022-02-24] MEDS ORDERED: levETIRAcetam in NaCl (iso-os) 1,000 MG in Premix Bag 1 BAG IV ONE ×2 (18:47)
[2022-02-24] MEDS ORDERED: LORazepam 2 MG/ML SDV IVPUSH ONE (18:49)
[2022-02-24] MEDS ORDERED: LORazepam 2 MG/ML SDV ONE (18:50)
[2022-02-24 19:54] LABS: CORONAVIRUS COVID-19 NAA NEGATIVE (NEGATIVE); RESPIRATORY SYNCYTIAL VIR NAA NEGATIVE (NEGATIVE)
[2022-02-24] MEDS ORDERED: cefTRIAXone 1 GM in Sodium Chloride 0.9% 50 ML IV ONE (20:53)
[2022-02-24 21:35] LABS: AMPHETAMINES,URINE NEGATIVE (NEGATIVE); BARBITURATES,URINE POSITIVE (NEGATIVE); BENZODIAZEPINE,URINE POSITIVE (NEGATIVE); MDMA (ECSTASY), URINE NEGATIVE (NEGATIVE); METHADONE,URINE NEGATIVE (NEGATIVE); METHAMPHETAMINES,URINE NEGATIVE (NEGATIVE); OPIATES,URINE NEGATIVE (NEGATIVE); OXYCODONE,URINE NEGATIVE (NEGATIVE); PHENCYCLIDINE,URINE NEGATIVE (NEGATIVE); TCA,URINE NEGATIVE (NEGATIVE)
[2022-02-24] MEDS ORDERED: Phenytoin 100 MG Cap.ER PO STA (23:37)
[2022-02-24] MEDS ORDERED: Bisacodyl 5 MG Tab PO PRN (23:39)
[2022-02-24] MEDS ORDERED: Albuterol 0.083% 2.5 MG/3 ML Neb Soln NEB PRN (23:39)
[2022-02-24] MEDS ORDERED: Docusate Sodium 100 MG Cap PO PRN (23:39)
[2022-02-24] MEDS ORDERED: Ondansetron 4 MG/2 ML SDV IVPUSH PRN (23:39)
[2022-02-24] MEDS ORDERED: Acetaminophen 325 MG Tab PO PRN (23:39)
[2022-02-25 06:55] LABS: ANION GAP 13.4 mEq/L (7-13); CHLORIDE,CL 106 mmol/L (98-107); SODIUM,NA 141 mmol/L (136-145)
[2022-02-25] MEDS ORDERED: levETIRAcetam 500 MG Tab PO SCH (09:00)
[2022-02-25] MEDS ORDERED: Phenytoin 100 MG Cap.ER PO SCH (21:00)
== END 2022-02-25 11:30 | disposition home or self-care (01) ==
LOC: DL.ED 17:42 → DL.MS 23:15 → DL.ED 23:15
PROVIDERS: ADMIT Internal Medicine; ATTEND Internal Medicine
DX: R56.9 Unspecified convulsions (principal); E78.00 Pure hypercholesterolemia, unspecified; I10 Essential (primary) hypertension; E11.9 Type 2 diabetes mellitus without complications; Z79.84 Long term (current) use of oral hypoglycemic drugs; Z87.891 Personal history of nicotine dependence; Z86.16 Personal history of COVID-19; Z91.048 Other nonmedicinal substance allergy status; Z79.899 Other long term (current) drug therapy; Z20.822 Contact with and (suspected) exposure to COVID-19
CPT/HCPCS: 0241U; 36415; 70450; 71045; 80048; 80053; 80185; 80305; 80307; 81001; 82140; 83605; 83735; 84484; 85025; 86140; 93005; 96365; 96375; 99285; A9270; J0696; J1953; J2060; J7030; G0378

== ENCOUNTER 2022-04-09 12:27 | Emergency (ER) | payer BC ==
[2022-04-09] MEDS ORDERED: levETIRAcetam in NaCl (iso-os) 1,500 MG in Premix Bag 1 BAG IV ONE ×2 (12:50)
[2022-04-09] MEDS ORDERED: Sodium Chloride 0.9% 1,000 ML IV ONE (12:51)
[2022-04-09] MEDS ORDERED: Ketorolac 30 MG/ML SDV IM ONE (12:57)
[2022-04-09] MEDS ORDERED: Orphenadrine 60 MG/2 ML Inj IM ONE (12:57)
[2022-04-09 13:39] LABS: ANION GAP 18.3 mEq/L (7-13); CHLORIDE,CL 101 mmol/L (98-107); SODIUM,NA 138 mmol/L (136-145)
[2022-04-09 13:40] LABS: ESTIMATED GFR 90 mL/min (>=60)
[2022-04-09 15:01] LABS: AMPHETAMINES,URINE NEGATIVE (NEGATIVE); BARBITURATES,URINE POSITIVE (NEGATIVE); BENZODIAZEPINE,URINE NEGATIVE (NEGATIVE); MDMA (ECSTASY), URINE NEGATIVE (NEGATIVE); METHADONE,URINE NEGATIVE (NEGATIVE); METHAMPHETAMINES,URINE NEGATIVE (NEGATIVE); OPIATES,URINE NEGATIVE (NEGATIVE); OXYCODONE,URINE NEGATIVE (NEGATIVE); PHENCYCLIDINE,URINE NEGATIVE (NEGATIVE); TCA,URINE NEGATIVE (NEGATIVE)
== END 2022-04-09 15:21 | disposition home or self-care (01) ==
LOC: DL.ED 12:27
DX: G40.909 Epilepsy, unspecified, not intractable, without status epilepticus (principal); M79.652 Pain in left thigh; E78.00 Pure hypercholesterolemia, unspecified; I10 Essential (primary) hypertension; E11.9 Type 2 diabetes mellitus without complications; Z79.84 Long term (current) use of oral hypoglycemic drugs; Z91.048 Other nonmedicinal substance allergy status; Z86.16 Personal history of COVID-19
CPT/HCPCS: 36415; 73562-LT; 80053; 80305-QW; 80307; 81003; 83605; 84145; 84484; 85025; 86140; 93005; 93010; 96361; 96372; 96374; 99284; 99285-25; J1885; J1953; J2360; J7030

== ENCOUNTER 2022-05-08 16:56 | Emergency (ER) | payer BC ==
[2022-05-08] MEDS: levETIRAcetam in NaCl (iso-os) 1,500 MG in Premix Bag 1 BAG IV ONE ×2 (17:21)
[2022-05-08 18:15] LABS: ANION GAP 17.7 mEq/L (7-13); CHLORIDE,CL 102 mmol/L (98-107); SODIUM,NA 142 mmol/L (136-145)
[2022-05-08 18:17] LABS: ESTIMATED GFR 95 mL/min (>=60)
[2022-05-08] MEDS ORDERED: LORazepam 2 MG/ML SDV ONE (19:21)
== END 2022-05-08 19:06 | disposition home or self-care (01) ==
LOC: DL.ED 16:56
DX: G40.909 Epilepsy, unspecified, not intractable, without status epilepticus (principal); E78.00 Pure hypercholesterolemia, unspecified; I10 Essential (primary) hypertension; E11.9 Type 2 diabetes mellitus without complications; Z91.048 Other nonmedicinal substance allergy status; Z79.84 Long term (current) use of oral hypoglycemic drugs
CPT/HCPCS: 36415; 80053; 80164; 80177; 80185; 80307; 82550; 83735; 85025; 86140; 96374; 99284-25; J1953

== ENCOUNTER 2022-05-08 19:27 | Emergency (ER) | payer BC ==
[2022-05-08] MEDS: LORazepam 2 MG/ML SDV IM ONE (19:27)
[2022-05-08] MEDS: Phenytoin 1,500 MG in Sodium Chloride 0.9% 100 ML IV ONE (20:04)
== END 2022-05-08 21:30 | disposition home or self-care (01) ==
LOC: DL.ED 19:27
DX: R56.9 Unspecified convulsions (principal); E78.00 Pure hypercholesterolemia, unspecified; I10 Essential (primary) hypertension; E11.9 Type 2 diabetes mellitus without complications; Z91.048 Other nonmedicinal substance allergy status; Z79.84 Long term (current) use of oral hypoglycemic drugs; Z86.16 Personal history of COVID-19
CPT/HCPCS: 96365; 96372; 99283-25; J1165; J2060

== ENCOUNTER 2022-10-16 15:33 | Emergency (ER) | payer BC, MEDICAID ==
[2022-10-16] MEDS ORDERED: Sodium Chloride 0.9% 10 ML Syringe FLUSH PRN (17:56)
[2022-10-16] MEDS ORDERED: Sodium Chloride 0.9% 1,000 ML IV ONE (18:03)
[2022-10-16 18:38] LABS: ANION GAP 12.5 mEq/L (7-13); CHLORIDE,CL 95 mmol/L (98-107); SODIUM,NA 130 mmol/L (136-145)
[2022-10-16] MEDS ORDERED: Sodium Chloride 0.9% 1,000 ML IV SCH (18:45)
[2022-10-16 18:55] LABS: ESTIMATED GFR 88 mL/min (>=60)
[2022-10-16] MEDS ORDERED: levETIRAcetam in NaCl (iso-os) 1,500 MG in Premix Bag 1 BAG IV ONE ×2 (19:02)
[2022-10-16] MEDS ORDERED: Glucagon,Human Recombinant 1 MG Vial IM PRN (19:03)
[2022-10-16] MEDS ORDERED: 50% Dextrose in Water 50 ML Syringe IVPUSH PRN (19:03)
[2022-10-16] MEDS ORDERED: Phenytoin 100 MG Cap.ER PO ONE (19:03)
[2022-10-16 19:16] LABS: O2 DELIVERY DEVICE ROOM AIR
[2022-10-16 19:18] LABS: ALLEN TEST PERFORMED; BASE EXCESS ARTERIAL 1 mmol/L ((-2)-(+3)); BICARBONATE,ARTERIAL 26.7 mmol/L (22-26); O2 SATURATION ARTERIAL 94 % (95-100); PCO2 ARTERIAL 46 mmHg (35-45); PO2 ARTERIAL 75 mmHg (70-100)
[2022-10-16 20:11] LABS: AMPHETAMINES,URINE NEGATIVE (NEGATIVE); BARBITURATES,URINE NEGATIVE (NEGATIVE); BENZODIAZEPINE,URINE NEGATIVE (NEGATIVE); MDMA (ECSTASY), URINE NEGATIVE (NEGATIVE); METHADONE,URINE NEGATIVE (NEGATIVE); METHAMPHETAMINES,URINE NEGATIVE (NEGATIVE); OPIATES,URINE NEGATIVE (NEGATIVE); OXYCODONE,URINE NEGATIVE (NEGATIVE); PHENCYCLIDINE,URINE NEGATIVE (NEGATIVE); TCA,URINE NEGATIVE (NEGATIVE)
== END 2022-10-16 20:42 | disposition home or self-care (01) ==
LOC: DL.ED 15:33
DX: E11.65 Type 2 diabetes mellitus with hyperglycemia (principal); I10 Essential (primary) hypertension; E78.00 Pure hypercholesterolemia, unspecified; F17.210 Nicotine dependence, cigarettes, uncomplicated; Z91.048 Other nonmedicinal substance allergy status; Z20.822 Contact with and (suspected) exposure to COVID-19; Z91.14 Patient's other noncompliance with medication regimen
CPT/HCPCS: 36415; 36600; 80053; 80305; 81003; 82009; 82150; 82803; 82947; 83605; 83690; 83735; 85025; 87635; 96361; 96365; 99284; A9270; J1815; J1953; J3490; J7030; U0002

== ENCOUNTER 2022-10-26 14:49 | Emergency (ER) | payer MEDICAID ==
[2022-10-26] MEDS ORDERED: Sodium Chloride 0.9% 10 ML Syringe FLUSH PRN (15:09)
[2022-10-26] MEDS ORDERED: LORazepam 2 MG/ML SDV IVPUSH ONE (15:09)
[2022-10-26 15:52] LABS: CHLORIDE,CL 102 mmol/L (98-107); SODIUM,NA 139 mmol/L (136-145)
[2022-10-26 15:53] LABS: ESTIMATED GFR 99 mL/min (>=60)
[2022-10-26 16:05] LABS: CORONAVIRUS COVID-19 NAA NEGATIVE (NEGATIVE)
[2022-10-26] MEDS ORDERED: Phenytoin 100 MG Cap.ER PO STA (16:16)
[2022-10-27] MEDS ORDERED: Phenytoin 100 MG Cap.ER PO ONE (16:02)
== END 2022-10-26 16:30 | disposition home or self-care (01) ==
LOC: DL.ED 14:49
DX: R56.9 Unspecified convulsions (principal); F41.9 Anxiety disorder, unspecified; I10 Essential (primary) hypertension; E11.9 Type 2 diabetes mellitus without complications; Z91.048 Other nonmedicinal substance allergy status; Z79.899 Other long term (current) drug therapy
CPT/HCPCS: 0240U; 36415; 80053; 80185; 80307; 81003; 84484; 85025; 93005; 96374; 99285; A9270; J2060; J3490; 93010; 99284

== ENCOUNTER 2023-03-30 21:55 | Emergency (ER) | payer MEDICAID ==
[2023-03-30] MEDS ORDERED: Phenytoin 100 MG Cap.ER PO ONE ×2 (21:56→23:36)
[2023-03-30 23:10] LABS: BASOPHILS PERCENT AUTO 0.4 % (0.0-1.0); EOSINOPHILS PERCENT AUTO 3.3 % (1.0-3.0); HEMATOCRIT 47.1 % (40.0-54.0); HEMOGLOBIN 16.7 g/dL (14.0-18.0); LYMPHOCYTES PERCENT AUTO 46.1 % (20.5-50.1); MEAN CORPUSCULAR HEMOGLOBIN 31.6 pg (27.0-34.0); MEAN CORPUSCULAR HGB CONC 35.5 g/dL (33.0-35.0); MONOCYTES PERCENT AUTO 8.4 % (2-8); NEUTROPHILS PERCENT AUTO 41.8 % (42.2-75.2); PLATELET COUNT,PLT 192 10^3/uL (150-450); RED BLOOD CELL COUNT 5.29 10^6/uL (4.6-6.2); WHITE BLOOD CELL COUNT,WBC 8.1 10^3/uL (5.0-10.0)
[2023-03-30 23:31] LABS: A/G RATIO 1.1; ANION GAP 11.9 mEq/L (7-13); BILIRUBIN TOTAL 0.3 mg/dL (0.2-1.0); BUN/CREATININE RATIO 11.2 (No establ ref range); CALCIUM 9.1 mg/dL (8.5-10.1); CREATININE 0.89 mg/dL (0.70-1.30); EST CRCL DRUG DOSING (CG) 99.03 mL/min; POTASSIUM,K 3.9 mmol/L (3.5-5.1); PROTEIN TOTAL,TP 7.5 g/dL (6.4-8.2)
[2023-03-30] MEDS ORDERED: Phenytoin 500 MG in Sodium Chloride 0.9% 100 ML IV ONE (23:38)
[2023-03-31] MEDS ORDERED: Phenytoin 100 MG Cap.ER ONE (00:30)
[2023-03-31] MEDS ORDERED: Phenytoin 100 MG Cap.ER PO SCH (21:00)
== END 2023-03-31 00:54 | disposition home or self-care (01) ==
LOC: DL.ED 21:55
DX: G40.909 Epilepsy, unspecified, not intractable, without status epilepticus (principal); I10 Essential (primary) hypertension; E11.9 Type 2 diabetes mellitus without complications; Z86.16 Personal history of COVID-19; Z91.09 Other allergy status, other than to drugs and biological substances; Z91.148 Patient's other noncompliance with medication regimen for other reason
CPT/HCPCS: 36415; 80053; 80185; 85025; 96365; 99284; A9270; J1165; J3490

== ENCOUNTER 2023-04-06 18:56 | Emergency (ER) | payer MEDICAID | END 2023-04-06 19:06 | disposition left against medical advice (07) | LOC: DL.ED 18:56 | DX: Z53.21 Procedure and treatment not carried out due to patient leaving prior to being seen by health care provider (principal) ==

== ENCOUNTER 2023-04-13 01:12 | Emergency (ER) | payer MEDICAID ==
[2023-04-13] MEDS ORDERED: Sodium Chloride 0.9% 10 ML Syringe FLUSH PRN (01:39)
[2023-04-13] MEDS ORDERED: Sodium Chloride 0.9% 1,000 ML IV ONE ×2 (01:43→02:08)
[2023-04-13 01:46] LABS: BASOPHILS PERCENT AUTO 0.3 % (0.0-1.0); EOSINOPHILS PERCENT AUTO 0.6 % (1.0-3.0); HEMATOCRIT 48.4 % (40.0-54.0); HEMOGLOBIN 17.5 g/dL (14.0-18.0); LYMPHOCYTES PERCENT AUTO 22.5 % (20.5-50.1); MEAN CORPUSCULAR HEMOGLOBIN 31.4 pg (27.0-34.0); MEAN CORPUSCULAR HGB CONC 36.2 g/dL (33.0-35.0); MEAN CORPUSCULAR VOLUME 86.7 fL (80-100); MONOCYTES PERCENT AUTO 5.2 % (2-8); NEUTROPHILS PERCENT AUTO 71.4 % (42.2-75.2); PLATELET COUNT,PLT 209 10^3/uL (150-450); RED BLOOD CELL COUNT 5.58 10^6/uL (4.6-6.2); WHITE BLOOD CELL COUNT,WBC 14.7 10^3/uL (5.0-10.0)
[2023-04-13 01:56] LABS: A/G RATIO 1.2; ALBUMIN 4.5 g/dL (3.4-5.0); ANION GAP 22.5 mEq/L (7-13); BILIRUBIN TOTAL 0.3 mg/dL (0.2-1.0); BUN/CREATININE RATIO 10.3 (No establ ref range); CALCIUM 9.4 mg/dL (8.5-10.1); CREATININE 1.17 mg/dL (0.70-1.30); EST CRCL DRUG DOSING (CG) 75.33 mL/min; POTASSIUM,K 3.5 mmol/L (3.5-5.1); PROTEIN TOTAL,TP 8.3 g/dL (6.4-8.2)
[2023-04-13 02:03] LABS: LACTIC ACID 8.1 mmol/L (0.4-2.0)
[2023-04-13] MEDS ORDERED: Ketorolac 30 MG/ML SDV IVPUSH ONE (02:08)
[2023-04-13 02:46] LABS: APPEARANCE,URINE CLEAR (CLEAR); BILIRUBIN,URINE NEGATIVE (NEGATIVE); COLOR,URINE YELLOW (YELLOW); GLUCOSE,URINE 500 (NEGATIVE); KETONES,URINE 40 (NEGATIVE); LEUKOCYTE ESTERASE,URINE NEGATIVE (NEGATIVE); NITRITE,URINE NEGATIVE (NEGATIVE); OCCULT BLOOD,URINE NEGATIVE (NEGATIVE); PH,URINE 5.5 (5.0-9.0); PROTEIN,URINE NEGATIVE (NEGATIVE); UROBILINOGEN,URINE 0.2 mg/dL (0.2-1.0)
[2023-04-13 02:50] LABS: AMPHETAMINES,URINE NEGATIVE (NEGATIVE); BARBITURATES,URINE POSITIVE (NEGATIVE); BENZODIAZEPINE,URINE NEGATIVE (NEGATIVE); MDMA (ECSTASY), URINE NEGATIVE (NEGATIVE); METHADONE,URINE NEGATIVE (NEGATIVE); METHAMPHETAMINES,URINE NEGATIVE (NEGATIVE); OPIATES,URINE NEGATIVE (NEGATIVE); OXYCODONE,URINE NEGATIVE (NEGATIVE); PHENCYCLIDINE,URINE NEGATIVE (NEGATIVE); TCA,URINE NEGATIVE (NEGATIVE)
== END 2023-04-13 03:08 | disposition home or self-care (01) ==
LOC: DL.ED 01:12
DX: G40.909 Epilepsy, unspecified, not intractable, without status epilepticus (principal); I10 Essential (primary) hypertension; E78.00 Pure hypercholesterolemia, unspecified; M19.90 Unspecified osteoarthritis, unspecified site; E11.9 Type 2 diabetes mellitus without complications; Z86.16 Personal history of COVID-19; Z91.048 Other nonmedicinal substance allergy status; Z79.899 Other long term (current) drug therapy; Z79.84 Long term (current) use of oral hypoglycemic drugs
CPT/HCPCS: 36415; 80053; 80305; 80307; 81003; 83605; 85025; 94762; 96361; 96374; 99284; J1885; J7030; J3490

== ENCOUNTER 2023-05-24 21:17 | Emergency (ER) | payer MEDICAID ==
[2023-05-24] MEDS ORDERED: Sodium Chloride 0.9% 10 ML Syringe FLUSH PRN (21:56)
[2023-05-24] MEDS ORDERED: Sodium Chloride 0.9% 1,000 ML IV ONE (21:57)
[2023-05-24] MEDS ORDERED: Ketorolac 30 MG/ML SDV IVPUSH ONE (21:57)
[2023-05-24 22:17] LABS: BASOPHILS PERCENT AUTO 0.4 % (0.0-1.0); EOSINOPHILS PERCENT AUTO 2.1 % (1.0-3.0); HEMATOCRIT 49.6 % (40.0-54.0); LYMPHOCYTES PERCENT AUTO 28.3 % (20.5-50.1); MEAN CORPUSCULAR HEMOGLOBIN 31.5 pg (27.0-34.0); MEAN CORPUSCULAR HGB CONC 36.3 g/dL (33.0-35.0); MEAN CORPUSCULAR VOLUME 86.7 fL (80-100); MONOCYTES PERCENT AUTO 6.6 % (2-8); NEUTROPHILS PERCENT AUTO 62.6 % (42.2-75.2); PLATELET COUNT,PLT 210 10^3/uL (150-450); RED BLOOD CELL COUNT 5.72 10^6/uL (4.6-6.2); WHITE BLOOD CELL COUNT,WBC 9.4 10^3/uL (5.0-10.0)
[2023-05-24 22:34] LABS: A/G RATIO 1.1; ALBUMIN 4.2 g/dL (3.4-5.0); ANION GAP 14.7 mEq/L (7-13); BILIRUBIN TOTAL 0.3 mg/dL (0.2-1.0); BUN/CREATININE RATIO 25.6 (No establ ref range); CALCIUM 9.3 mg/dL (8.5-10.1); CREATININE 0.86 mg/dL (0.70-1.30); EST CRCL DRUG DOSING (CG) 102.48 mL/min; POTASSIUM,K 4.7 mmol/L (3.5-5.1); PROTEIN TOTAL,TP 7.9 g/dL (6.4-8.2)
== END 2023-05-24 22:55 | disposition home or self-care (01) ==
LOC: DL.ED 21:17
DX: G44.89 Other headache syndrome (principal); E78.00 Pure hypercholesterolemia, unspecified; I10 Essential (primary) hypertension; E11.9 Type 2 diabetes mellitus without complications; Z79.4 Long term (current) use of insulin; Z79.84 Long term (current) use of oral hypoglycemic drugs; Z79.899 Other long term (current) drug therapy; Z86.16 Personal history of COVID-19
CPT/HCPCS: 36415; 80053; 82947; 85025; 96374; 99284; J1885; J7030; 99283; J3490

== ENCOUNTER 2023-07-19 20:30 | Emergency (ER) | payer MEDICAID ==
[2023-07-19 20:23] LABS: HEMATOCRIT 49.6 % (40.0-54.0); HEMOGLOBIN 19.4 g/dL (14.0-18.0); MEAN CORPUSCULAR HEMOGLOBIN 33.5 pg (27.0-34.0); MEAN CORPUSCULAR HGB CONC 39.1 g/dL (33.0-35.0); MEAN CORPUSCULAR VOLUME 85.7 fL (80-100); PLATELET COUNT,PLT 208 10^3/uL (150-450); RED BLOOD CELL COUNT 5.79 10^6/uL (4.6-6.2); WHITE BLOOD CELL COUNT,WBC 12.9 10^3/uL (5.0-10.0)
[2023-07-19 20:28] LABS: APPEARANCE,URINE CLEAR (CLEAR); BILIRUBIN,URINE NEGATIVE (NEGATIVE); COLOR,URINE YELLOW (YELLOW); GLUCOSE,URINE 500 (NEGATIVE); KETONES,URINE TRACE (NEGATIVE); LEUKOCYTE ESTERASE,URINE NEGATIVE (NEGATIVE); NITRITE,URINE NEGATIVE (NEGATIVE); OCCULT BLOOD,URINE NEGATIVE (NEGATIVE); PH,URINE 5.5 (5.0-9.0); PROTEIN,URINE 100 (NEGATIVE); UROBILINOGEN,URINE 0.2 mg/dL (0.2-1.0)
[~2023-07-19 20:30] MED LIST changes: -Phenytoin 1,000 MG in Sodium Chloride 0.9% 100 ML IV ONE; +Sodium Chloride 0.9% 10 ML Syringe FLUSH PRN; +levETIRAcetam in NaCl (iso-os) 1,500 MG in Premix Bag 1 BAG IV ONE
[2023-07-19 20:35] LABS: BASOPHILS PERCENT AUTO 0.4 % (0.0-1.0); EOSINOPHILS PERCENT AUTO 0.7 % (1.0-3.0); MONOCYTES PERCENT AUTO 5.7 % (2-8); NEUTROPHILS PERCENT AUTO 76.2 % (42.2-75.2)
[2023-07-19 20:38] LABS: METHAMPHETAMINES,URINE NEGATIVE (NEGATIVE)
[2023-07-19 20:39] LABS: AMPHETAMINES,URINE NEGATIVE (NEGATIVE); BARBITURATES,URINE NEGATIVE (NEGATIVE); BENZODIAZEPINE,URINE NEGATIVE (NEGATIVE); MDMA (ECSTASY), URINE NEGATIVE (NEGATIVE); METHADONE,URINE NEGATIVE (NEGATIVE); OPIATES,URINE NEGATIVE (NEGATIVE); OXYCODONE,URINE NEGATIVE (NEGATIVE); PHENCYCLIDINE,URINE NEGATIVE (NEGATIVE); TCA,URINE NEGATIVE (NEGATIVE)
[2023-07-19 20:44] LABS: RBC,URINE 0-5 /HPF (0-5); WBC,URINE 0-5 /HPF (0-5/HPF)
[2023-07-19 20:45] LABS: BACTERIA,URINE RARE /HPF (0-FEW/HPF); EPITHELIAL CELLS,URINE RARE /HPF (NOT SEEN)
[2023-07-19 20:48] LABS: EOSINOPHILS PERCENT MAN 1 % (1-3); LYMPHOCYTES PERCENT MAN 14 % (20-50); MONOCYTES PERCENT MAN 6 % (2-8); SEG NEUTROPHILS PERCENT MAN 79 % (42-75)
[2023-07-19 20:49] LABS: ALBUMIN 4.1 g/dL (3.4-5.0); ANION GAP 19.1 mEq/L (7-13); BILIRUBIN TOTAL 0.3 mg/dL (0.2-1.0); BUN/CREATININE RATIO 13.1 (No establ ref range); C-REACTIVE PROTEIN 0.28 ng/dL (<=0.30); CALCIUM 9.4 mg/dL (8.5-10.1); CREATININE 1.07 mg/dL (0.70-1.30); EST CRCL DRUG DOSING (CG) 82.37 mL/min; POTASSIUM,K 4.1 mmol/L (3.5-5.1); PROTEIN TOTAL,TP 8.2 g/dL (6.4-8.2)
[2023-07-19 20:50] LABS: LACTIC ACID 5.5 mmol/L (0.4-2.0)
[2023-07-19] MEDS ORDERED: LORazepam 2 MG/ML SDV IVPUSH ONE (20:52)
[2023-07-19] MEDS ORDERED: LORazepam 2 MG/ML SDV ONE (20:52)
[2023-07-19] MEDS ORDERED: Iopamidol 755 Mg/ML 100 ML Bottle IVPUSH ONE (21:01)
[2023-07-19] MEDS ORDERED: Fosphenytoin 500 MG.PE in Sodium Chloride 0.9% 50 ML IV ONE (21:09)
[2023-07-19] MEDS ORDERED: Phenytoin 100 MG Cap.ER ONE (23:21)
== END 2023-07-19 23:38 | disposition home or self-care (01) ==
LOC: DL.ED 20:30
DX: G40.909 Epilepsy, unspecified, not intractable, without status epilepticus (principal); E11.9 Type 2 diabetes mellitus without complications; E78.00 Pure hypercholesterolemia, unspecified; I10 Essential (primary) hypertension; Z79.84 Long term (current) use of oral hypoglycemic drugs; Z79.899 Other long term (current) drug therapy; Z91.048 Other nonmedicinal substance allergy status; Z86.16 Personal history of COVID-19
CPT/HCPCS: 36415; 70450; 70496; 70498; 80053; 80177; 80305-QW; 80307; 81001; 83605; 83735; 85025; 86140; 96365; 96375; 99284; 99285-25; J1953; J2060; J3490; J7030; Q2009; Q9967

== ENCOUNTER 2023-08-03 14:56 | Emergency (ER) | payer MEDICAID ==
[2023-08-03] MEDS ORDERED: Sodium Chloride 0.9% 10 ML Syringe FLUSH PRN (15:14)
[2023-08-03] MEDS ORDERED: Sodium Chloride 0.9% 1,000 ML IV ONE (15:14)
[2023-08-03 15:31] LABS: BASOPHILS PERCENT AUTO 0.3 % (0.0-1.0); EOSINOPHILS PERCENT AUTO 3.2 % (1.0-3.0); HEMATOCRIT 49.3 % (40.0-54.0); HEMOGLOBIN 17.4 g/dL (14.0-18.0); LYMPHOCYTES PERCENT AUTO 35.6 % (20.5-50.1); MEAN CORPUSCULAR HEMOGLOBIN 31.3 pg (27.0-34.0); MEAN CORPUSCULAR HGB CONC 35.3 g/dL (33.0-35.0); MEAN CORPUSCULAR VOLUME 88.7 fL (80-100); MONOCYTES PERCENT AUTO 7.9 % (2-8); PLATELET COUNT,PLT 216 10^3/uL (150-450); RED BLOOD CELL COUNT 5.56 10^6/uL (4.6-6.2); WHITE BLOOD CELL COUNT,WBC 7.2 10^3/uL (5.0-10.0)
[2023-08-03 15:57] LABS: APPEARANCE,URINE CLEAR (CLEAR); BILIRUBIN,URINE NEGATIVE (NEGATIVE); COLOR,URINE YELLOW (YELLOW); GLUCOSE,URINE >=1000 (NEGATIVE); KETONES,URINE NEGATIVE (NEGATIVE); LEUKOCYTE ESTERASE,URINE NEGATIVE (NEGATIVE); NITRITE,URINE NEGATIVE (NEGATIVE); OCCULT BLOOD,URINE TRACE-INTACT (NEGATIVE); PROTEIN,URINE NEGATIVE (NEGATIVE); UROBILINOGEN,URINE 0.2 mg/dL (0.2-1.0)
[2023-08-03 16:03] LABS: AMORPHOUS SEDIMENT,URINE RARE /HPF (NOT SEEN); BACTERIA,URINE NOT SEEN /HPF (0-FEW/HPF); EPITHELIAL CELLS,URINE RARE /HPF (NOT SEEN); MUCUS,URINE RARE /LPF (NOT SEEN); RBC,URINE 0-5 /HPF (0-5); WBC,URINE NOT SEEN /HPF (0-5/HPF)
[2023-08-03 16:04] LABS: AMPHETAMINES,URINE NEGATIVE (NEGATIVE); BARBITURATES,URINE POSITIVE (NEGATIVE); BENZODIAZEPINE,URINE NEGATIVE (NEGATIVE); MDMA (ECSTASY), URINE NEGATIVE (NEGATIVE); METHADONE,URINE NEGATIVE (NEGATIVE); METHAMPHETAMINES,URINE NEGATIVE (NEGATIVE); OPIATES,URINE NEGATIVE (NEGATIVE); OXYCODONE,URINE NEGATIVE (NEGATIVE); PHENCYCLIDINE,URINE NEGATIVE (NEGATIVE); TCA,URINE NEGATIVE (NEGATIVE)
[2023-08-03 16:05] LABS: A/G RATIO 0.9; ALANINE AMINOTRANSFERASE,ALT 112 U/L (16-63); ALBUMIN 3.9 g/dL (3.4-5.0); ALKALINE PHOSPHATASE 83 U/L (46-116); ANION GAP 12.5 mEq/L (7-13); ASPARTATE AMNIOTRANSFERASE,AST 47 U/L (15-37); BILIRUBIN TOTAL 0.3 mg/dL (0.2-1.0); BLOOD UREA NITROGEN,BUN 12 mg/dL (7-18); BUN/CREATININE RATIO 14.3 (No establ ref range); CALCIUM 9.3 mg/dL (8.5-10.1); CARBON DIOXIDE,CO2 28 mmol/L (21-32); CHLORIDE,CL 103 mmol/L (98-107); CREATINE KINASE,CK 84 U/L (39-308); CREATININE 0.84 mg/dL (0.70-1.30); EST CRCL DRUG DOSING (CG) 104.92 mL/min; ESTIMATED GFR 110 mL/min (>=60); GLUCOSE RANDOM 236 mg/dL (70-99); MAGNESIUM 1.4 mg/dL (1.8-2.4); POTASSIUM,K 4.5 mmol/L (3.5-5.1); PROTEIN TOTAL,TP 8.2 g/dL (6.4-8.2); SODIUM,NA 139 mmol/L (136-145); TSH ULTRASENSITIVE 0.78 uIU/mL (0.36-3.74)
[2023-08-03 16:06] LABS: ETHANOL BLOOD MEDICAL < 3 mg/dL (0)
[2023-08-03] MEDS ORDERED: Magnesium Sulfate/Water 2 GM in Premix Bag 1 BAG IV ONE ×2 (16:07→16:09)
[2023-08-03 16:26] LABS: CORONAVIRUS COVID-19 NAA NEGATIVE (NEGATIVE); INFLUENZA A NAA NEGATIVE (NEGATIVE); INFLUENZA B NAA NEGATIVE (NEGATIVE); RESPIRATORY SYNCYTIAL VIR NAA NEGATIVE (NEGATIVE)
== END 2023-08-03 18:10 | disposition home or self-care (01) ==
LOC: DL.ED 14:56
DX: E11.65 Type 2 diabetes mellitus with hyperglycemia (principal); E83.42 Hypomagnesemia; R55 Syncope and collapse; I10 Essential (primary) hypertension; E78.00 Pure hypercholesterolemia, unspecified; Z86.16 Personal history of COVID-19; Z91.048 Other nonmedicinal substance allergy status; Z79.899 Other long term (current) drug therapy; Z79.4 Long term (current) use of insulin; Z20.822 Contact with and (suspected) exposure to COVID-19
CPT/HCPCS: 0241U; 36415; 70450; 71045; 80053; 80305-QW; 80307; 81001; 82550; 82947; 83735; 84443; 84484; 85025; 85379; 93005; 93010; 96361; 96365; 96366; 99284; 99284-25; J3475; J3490; J7030

== ENCOUNTER 2023-08-23 15:52 | Emergency (ER) | payer MEDICAID ==
[2023-08-23 16:39] LABS: HEMATOCRIT 50.1 % (40.0-54.0); MEAN CORPUSCULAR HEMOGLOBIN 31.3 pg (27.0-34.0); MEAN CORPUSCULAR HGB CONC 35.9 g/dL (33.0-35.0); MEAN CORPUSCULAR VOLUME 87.1 fL (80-100); PLATELET COUNT,PLT 167 10^3/uL (150-450); RED BLOOD CELL COUNT 5.75 10^6/uL (4.6-6.2); WHITE BLOOD CELL COUNT,WBC 8.1 10^3/uL (5.0-10.0)
[2023-08-23 16:45] LABS: BASOPHILS PERCENT AUTO 0.6 % (0.0-1.0); EOSINOPHILS PERCENT AUTO 1.9 % (1.0-3.0); MONOCYTES PERCENT AUTO 5.8 % (2-8); NEUTROPHILS PERCENT AUTO 60.7 % (42.2-75.2)
[2023-08-23 16:54] LABS: APPEARANCE,URINE CLEAR (CLEAR); BILIRUBIN,URINE NEGATIVE (NEGATIVE); COLOR,URINE YELLOW (YELLOW); GLUCOSE,URINE >=1000 (NEGATIVE); KETONES,URINE 15 (NEGATIVE); LEUKOCYTE ESTERASE,URINE NEGATIVE (NEGATIVE); NITRITE,URINE NEGATIVE (NEGATIVE); OCCULT BLOOD,URINE TRACE-LYSED (NEGATIVE); PH,URINE 5.5 (5.0-9.0); PROTEIN,URINE 100 (NEGATIVE); UROBILINOGEN,URINE 0.2 mg/dL (0.2-1.0)
[2023-08-23 17:01] LABS: AMORPHOUS SEDIMENT,URINE RARE /HPF (NOT SEEN); BACTERIA,URINE RARE /HPF (0-FEW/HPF); EPITHELIAL CELLS,URINE RARE /HPF (NOT SEEN); MDMA (ECSTASY), URINE NEGATIVE (NEGATIVE); METHADONE,URINE NEGATIVE (NEGATIVE); METHAMPHETAMINES,URINE NEGATIVE (NEGATIVE); MUCUS,URINE RARE /LPF (NOT SEEN); OPIATES,URINE NEGATIVE (NEGATIVE); RBC,URINE 0-5 /HPF (0-5); WBC,URINE 0-5 /HPF (0-5/HPF)
[2023-08-23 17:02] LABS: AMPHETAMINES,URINE NEGATIVE (NEGATIVE); BARBITURATES,URINE POSITIVE (NEGATIVE); BENZODIAZEPINE,URINE NEGATIVE (NEGATIVE); OXYCODONE,URINE NEGATIVE (NEGATIVE); PHENCYCLIDINE,URINE NEGATIVE (NEGATIVE); TCA,URINE NEGATIVE (NEGATIVE)
[2023-08-23 17:11] LABS: ALANINE AMINOTRANSFERASE,ALT 134 U/L (16-63); ALBUMIN 4.2 g/dL (3.4-5.0); ALKALINE PHOSPHATASE 85 U/L (46-116); ANION GAP 15.3 mEq/L (7-13); ASPARTATE AMNIOTRANSFERASE,AST 73 U/L (15-37); BILIRUBIN TOTAL 0.4 mg/dL (0.2-1.0); BLOOD UREA NITROGEN,BUN 7 mg/dL (7-18); BUN/CREATININE RATIO 6.7 (No establ ref range); CALCIUM 9.2 mg/dL (8.5-10.1); CARBON DIOXIDE,CO2 22 mmol/L (21-32); CHLORIDE,CL 97 mmol/L (98-107); CREATININE 1.05 mg/dL (0.70-1.30); EST CRCL DRUG DOSING (CG) 83.94 mL/min; GLUCOSE RANDOM 183 mg/dL (70-99); MAGNESIUM 1.6 mg/dL (1.8-2.4); POTASSIUM,K 3.3 mmol/L (3.5-5.1); PROTEIN TOTAL,TP 8.2 g/dL (6.4-8.2); SODIUM,NA 131 mmol/L (136-145); TSH ULTRASENSITIVE 0.84 uIU/mL (0.36-3.74)
[2023-08-23 17:12] LABS: C-REACTIVE PROTEIN < 0.50 ng/dL (<=0.50); ESTIMATED GFR 90 mL/min (>=60); ETHANOL BLOOD MEDICAL < 3 mg/dL (0)
[2023-08-23 17:14] LABS: LACTIC ACID 7.6 mmol/L (0.4-2.0)
[2023-08-23] MEDS ORDERED: Sodium Chloride 0.9% 1,000 ML IV ONE (17:18)
[2023-08-23] MEDS ORDERED: Magnesium Sulfate/Water 2 GM in Premix Bag 1 BAG IV ONE (17:19)
[2023-08-23 17:24] LABS: EOSINOPHILS PERCENT MAN 1 % (1-3); LYMPHOCYTES PERCENT MAN 29 % (20-50); MONOCYTES PERCENT MAN 5 % (2-8); SEG NEUTROPHILS PERCENT MAN 65 % (42-75)
[2023-08-23 17:31] LABS: CORONAVIRUS COVID-19 NAA NEGATIVE (NEGATIVE); INFLUENZA A NAA NEGATIVE (NEGATIVE); INFLUENZA B NAA NEGATIVE (NEGATIVE); RESPIRATORY SYNCYTIAL VIR NAA NEGATIVE (NEGATIVE)
[2023-08-23] MEDS ORDERED: levETIRAcetam 500 MG Tab PO SCH (18:00)
[2023-08-23] MEDS ORDERED: Phenytoin 100 MG Cap.ER PO SCH (18:00)
== END 2023-08-23 19:51 | disposition home or self-care (01) ==
LOC: DL.ED 15:52
DX: G40.909 Epilepsy, unspecified, not intractable, without status epilepticus (principal); E87.6 Hypokalemia; E83.42 Hypomagnesemia; I10 Essential (primary) hypertension; E78.00 Pure hypercholesterolemia, unspecified; E11.9 Type 2 diabetes mellitus without complications; Z91.048 Other nonmedicinal substance allergy status; Z86.16 Personal history of COVID-19; Z79.84 Long term (current) use of oral hypoglycemic drugs; Z79.4 Long term (current) use of insulin; Z79.899 Other long term (current) drug therapy; Z20.822 Contact with and (suspected) exposure to COVID-19
CPT/HCPCS: 0241U; 36415; 80053; 80185; 80305-QW; 80307; 81001; 82140; 82947; 83605; 83735; 84443; 84484; 85025; 86140; 93005; 93010; 96365; 99284; 99284-25; A9270-GY; J3475; J7030

== ENCOUNTER 2024-02-02 21:07 | Emergency (ER) | payer MEDICAID | END 2024-02-02 22:30 | disposition left against medical advice (07) | LOC: DL.ED 21:07 | DX: Z53.21 Procedure and treatment not carried out due to patient leaving prior to being seen by health care provider (principal) | CPT/HCPCS: 82947 ==

== ENCOUNTER 2024-04-20 20:13 | Emergency (ER) | payer MEDICAID ==
[2024-04-20] MEDS: Sodium Chloride 0.9% 1,000 ML IV ONE (20:50)
[2024-04-20 20:58] LABS: HEMATOCRIT 47.6 % (40.0-54.0); HEMOGLOBIN 17.1 g/dL (14.0-18.0); MEAN CORPUSCULAR HEMOGLOBIN 31.8 pg (27.0-34.0); MEAN CORPUSCULAR HGB CONC 35.9 g/dL (33.0-35.0); MEAN CORPUSCULAR VOLUME 88.6 fL (80-100); PLATELET COUNT,PLT 196 10^3/uL (150-450); RED BLOOD CELL COUNT 5.37 10^6/uL (4.6-6.2); WHITE BLOOD CELL COUNT,WBC 7.6 10^3/uL (5.0-10.0)
[2024-04-20] MEDS: LORazepam 2 MG/ML SDV IVPUSH ONE (21:09)
[2024-04-20] MEDS: LORazepam 2 MG/ML SDV ONE (21:09)
[2024-04-20 21:18] LABS: BASOPHILS PERCENT AUTO 0.5 % (0.0-1.0); EOSINOPHILS PERCENT AUTO 3.6 % (1.0-3.0); LYMPHOCYTES PERCENT AUTO 30.1 % (20.5-50.1); MONOCYTES PERCENT AUTO 6.6 % (2-8); NEUTROPHILS PERCENT AUTO 59.2 % (42.2-75.2)
[2024-04-20] MEDS: levETIRAcetam in NaCl (iso-os) 500 MG in Premix Bag 1 BAG IV ONE (21:34)
[2024-04-20 21:36] LABS: ALBUMIN 3.9 g/dL (3.4-5.0); ANION GAP 14.2 mEq/L (7-13); BILIRUBIN TOTAL 0.3 mg/dL (0.2-1.0); BUN/CREATININE RATIO 20.7 (No establ ref range); CALCIUM 9.4 mg/dL (8.5-10.1); CREATININE 0.92 mg/dL (0.70-1.30); EST CRCL DRUG DOSING (CG) 94.8 mL/min; MAGNESIUM 1.6 mg/dL (1.8-2.4); POTASSIUM,K 4.2 mmol/L (3.5-5.1); PROTEIN TOTAL,TP 7.7 g/dL (6.4-8.2)
[2024-04-20 21:58] LABS: BAND PERCENT MAN 3 %; EOSINOPHILS PERCENT MAN 3 % (1-3); LYMPHOCYTES % ATYPICAL MANUAL 3 %; LYMPHOCYTES PERCENT MAN 33 % (20-50); MONOCYTES PERCENT MAN 5 % (2-8); SEG NEUTROPHILS PERCENT MAN 53 % (42-75)
[2024-04-20 22:33] LABS: APPEARANCE,URINE CLEAR (CLEAR); BILIRUBIN,URINE NEGATIVE (NEGATIVE); COLOR,URINE YELLOW (YELLOW); GLUCOSE,URINE 500 (NEGATIVE); KETONES,URINE NEGATIVE (NEGATIVE); LEUKOCYTE ESTERASE,URINE NEGATIVE (NEGATIVE); NITRITE,URINE NEGATIVE (NEGATIVE); OCCULT BLOOD,URINE TRACE-INTACT (NEGATIVE); PH,URINE 5.5 (5.0-9.0); PROTEIN,URINE 30 (NEGATIVE); UROBILINOGEN,URINE 0.2 mg/dL (0.2-1.0)
[2024-04-20 22:39] LABS: AMPHETAMINES,URINE NEGATIVE (NEGATIVE); BARBITURATES,URINE POSITIVE (NEGATIVE); BENZODIAZEPINE,URINE NEGATIVE (NEGATIVE); MDMA (ECSTASY), URINE NEGATIVE (NEGATIVE); METHADONE,URINE NEGATIVE (NEGATIVE); METHAMPHETAMINES,URINE NEGATIVE (NEGATIVE); OPIATES,URINE NEGATIVE (NEGATIVE); OXYCODONE,URINE NEGATIVE (NEGATIVE); PHENCYCLIDINE,URINE NEGATIVE (NEGATIVE); TCA,URINE NEGATIVE (NEGATIVE)
[2024-04-20 22:44] LABS: BACTERIA,URINE FEW /HPF (0-FEW/HPF); EPITHELIAL CELLS,URINE FEW /HPF (NOT SEEN); RBC,URINE 0-5 /HPF (0-5); WBC,URINE 0-5 /HPF (0-5/HPF)
== END 2024-04-20 22:35 | disposition home or self-care (01) ==
LOC: DL.ED 20:13
DX: G40.909 Epilepsy, unspecified, not intractable, without status epilepticus (principal); I10 Essential (primary) hypertension; E78.00 Pure hypercholesterolemia, unspecified; E11.9 Type 2 diabetes mellitus without complications; Z86.16 Personal history of COVID-19; Z79.84 Long term (current) use of oral hypoglycemic drugs; Z79.899 Other long term (current) drug therapy; Z79.4 Long term (current) use of insulin; Z91.048 Other nonmedicinal substance allergy status
CPT/HCPCS: 36415; 80053; 80177; 80185; 80305; 80307; 81001; 82947; 83735; 85025; 96361; 96365; 96375; 99284; J1953; J2060; J7030

== ENCOUNTER 2024-06-18 18:23 | Emergency (ER) | payer MEDICAID ==
[2024-06-18] MEDS ORDERED: Sodium Chloride 0.9% 10 ML Syringe FLUSH PRN (18:24)
[2024-06-18 18:41] LABS: BASOPHILS PERCENT AUTO 0.4 % (0.0-1.0); EOSINOPHILS PERCENT AUTO 1.3 % (1.0-3.0); HEMATOCRIT 54.1 % (40.0-54.0); HEMOGLOBIN 19.2 g/dL (14.0-18.0); LYMPHOCYTES PERCENT AUTO 33.4 % (20.5-50.1); MEAN CORPUSCULAR HEMOGLOBIN 31.5 pg (27.0-34.0); MEAN CORPUSCULAR HGB CONC 35.5 g/dL (33.0-35.0); MEAN CORPUSCULAR VOLUME 88.7 fL (80-100); MONOCYTES PERCENT AUTO 6.1 % (2-8); NEUTROPHILS PERCENT AUTO 58.8 % (42.2-75.2); PLATELET COUNT,PLT 213 10^3/uL (150-450); WHITE BLOOD CELL COUNT,WBC 9.4 10^3/uL (5.0-10.0)
[2024-06-18 18:51] LABS: PROTHROMBIN TIME 10.3 SEC (9.0-12.0)
[2024-06-18 18:58] LABS: A/G RATIO 1.2; ALANINE AMINOTRANSFERASE,ALT 140 U/L (16-63); ALBUMIN 4.8 g/dL (3.4-5.0); ALKALINE PHOSPHATASE 94 U/L (46-116); ANION GAP 24.5 mEq/L (7-13); ASPARTATE AMNIOTRANSFERASE,AST 58 U/L (15-37); BILIRUBIN TOTAL 0.4 mg/dL (0.2-1.0); BLOOD UREA NITROGEN,BUN 15 mg/dL (7-18); BUN/CREATININE RATIO 11.3 (No establ ref range); CALCIUM 9.9 mg/dL (8.5-10.1); CARBON DIOXIDE,CO2 18 mmol/L (21-32); CHLORIDE,CL 100 mmol/L (98-107); CREATININE 1.33 mg/dL (0.70-1.30); ESTIMATED GFR 67 mL/min (>=60); ETHANOL BLOOD MEDICAL < 3 mg/dL (0); GLUCOSE RANDOM 169 mg/dL (70-99); LIPASE 70 U/L (16-77); MAGNESIUM 1.8 mg/dL (1.8-2.4); POTASSIUM,K 3.5 mmol/L (3.5-5.1); PROTEIN TOTAL,TP 8.9 g/dL (6.4-8.2); SODIUM,NA 139 mmol/L (136-145)
[2024-06-18] MEDS: Lactated Ringers 1,000 ML IV SCH ×2 (19:00→19:38)
[2024-06-18 19:02] LABS: B-TYPE NATRIURETIC PEPTIDE,BNP 39 pg/ml (0-100)
[2024-06-18] MEDS: LORazepam 2 MG/ML SDV IVPUSH PRN (19:31)
[2024-06-18] MEDS: Midazolam 1 MG/ML 2 ML SDV IVPUSH ONE ×3 (19:38→19:53)
[2024-06-18] MEDS: Midazolam 1 MG/ML 2 ML SDV ONE (19:49)
[2024-06-18] MEDS: Fosphenytoin 1,000 MG.PE in Sodium Chloride 0.9% 50 ML IV ONE (20:15)
[2024-06-18] MEDS: levETIRAcetam in NaCl (iso-os) 500 MG in Premix Bag 1 BAG IV ONE (20:37)
[2024-06-18 21:28] LABS: APPEARANCE,URINE CLEAR (CLEAR); BILIRUBIN,URINE NEGATIVE (NEGATIVE); COLOR,URINE YELLOW (YELLOW); GLUCOSE,URINE >=1000 (NEGATIVE); KETONES,URINE 15 (NEGATIVE); LEUKOCYTE ESTERASE,URINE NEGATIVE (NEGATIVE); NITRITE,URINE NEGATIVE (NEGATIVE); OCCULT BLOOD,URINE TRACE-INTACT (NEGATIVE); PH,URINE 5.5 (5.0-9.0); PROTEIN,URINE 30 (NEGATIVE); UROBILINOGEN,URINE 0.2 mg/dL (0.2-1.0)
[2024-06-18 21:36] LABS: AMPHETAMINES,URINE NEGATIVE (NEGATIVE); BARBITURATES,URINE POSITIVE (NEGATIVE); BENZODIAZEPINE,URINE NEGATIVE (NEGATIVE); MDMA (ECSTASY), URINE NEGATIVE (NEGATIVE); METHADONE,URINE NEGATIVE (NEGATIVE); METHAMPHETAMINES,URINE NEGATIVE (NEGATIVE); OPIATES,URINE NEGATIVE (NEGATIVE); OXYCODONE,URINE NEGATIVE (NEGATIVE); PHENCYCLIDINE,URINE NEGATIVE (NEGATIVE); TCA,URINE NEGATIVE (NEGATIVE)
[2024-06-18 21:37] LABS: BACTERIA,URINE FEW /HPF (0-FEW/HPF); EPITHELIAL CELLS,URINE RARE /HPF (NOT SEEN); MUCUS,URINE FEW /LPF (NOT SEEN); RBC,URINE 0-5 /HPF (0-5); WBC,URINE NOT SEEN /HPF (0-5/HPF)
[2024-06-18 21:38] LABS: HYALINE CASTS,URINE RARE
[2024-06-24 05:42] LABS: KEPPRA 10 ug/mL (10-40)
== END 2024-06-18 23:45 | disposition home or self-care (01) ==
LOC: DL.ED 18:23
DX: G40.909 Epilepsy, unspecified, not intractable, without status epilepticus (principal); I10 Essential (primary) hypertension; E78.00 Pure hypercholesterolemia, unspecified; E11.9 Type 2 diabetes mellitus without complications; Z86.16 Personal history of COVID-19; Z79.899 Other long term (current) drug therapy; Z79.84 Long term (current) use of oral hypoglycemic drugs; Z91.048 Other nonmedicinal substance allergy status
CPT/HCPCS: 36415; 70450; 80053; 80177; 80185; 80305-QW; 80307; 81001; 83690; 83735; 83880; 84484; 85025; 85610; 93005; 93010; 96361; 96365; 96375; 99284; 99285-25; J1953; J2060; J2250; J3490; J7120; Q2009

== ENCOUNTER 2024-08-05 15:16 | Emergency (ER) | payer MEDICAID | END 2024-08-05 15:48 | disposition home or self-care (01) | LOC: DL.ED 15:16 | DX: R56.9 Unspecified convulsions (principal); I10 Essential (primary) hypertension; E78.00 Pure hypercholesterolemia, unspecified; E11.9 Type 2 diabetes mellitus without complications; Z86.16 Personal history of COVID-19; Z91.048 Other nonmedicinal substance allergy status; Z79.899 Other long term (current) drug therapy; Z79.84 Long term (current) use of oral hypoglycemic drugs; Z79.4 Long term (current) use of insulin | CPT/HCPCS: 99283; 99284 ==

== ENCOUNTER 2024-08-21 15:54 | Emergency (ER) | payer MEDICAID ==
[2024-08-21] MEDS: Sodium Chloride 0.9% 10 ML Syringe FLUSH PRN (16:15)
[2024-08-21] MEDS: Naloxone 2 MG/2 ML Syringe IVPUSH ONE (16:15)
[2024-08-21 16:19] LABS: HEMATOCRIT 52.9 % (40.0-54.0); HEMOGLOBIN 18.8 g/dL (14.0-18.0); MEAN CORPUSCULAR HEMOGLOBIN 31.4 pg (27.0-34.0); MEAN CORPUSCULAR HGB CONC 35.5 g/dL (33.0-35.0); MEAN CORPUSCULAR VOLUME 88.5 fL (80-100); PLATELET COUNT,PLT 221 10^3/uL (150-450); RED BLOOD CELL COUNT 5.98 10^6/uL (4.6-6.2); WHITE BLOOD CELL COUNT,WBC 10.8 10^3/uL (5.0-10.0)
[2024-08-21] MEDS ORDERED: LORazepam 2 MG/ML SDV IV ONE (16:19)
[2024-08-21] MEDS: LORazepam 2 MG/ML SDV IVPUSH ONE (16:21)
[2024-08-21] MEDS: levETIRAcetam in NaCl (iso-os) 1,500 MG in Premix Bag 1 BAG IV ONE (16:25)
[2024-08-21 16:27] LABS: BASOPHILS PERCENT AUTO 0.4 % (0.0-1.0); EOSINOPHILS PERCENT AUTO 1.2 % (1.0-3.0); LYMPHOCYTES PERCENT AUTO 14.8 % (20.5-50.1); MONOCYTES PERCENT AUTO 5.1 % (2-8); NEUTROPHILS PERCENT AUTO 78.5 % (42.2-75.2)
[2024-08-21 16:49] LABS: LACTIC ACID 6.1 mmol/L (0.4-2.0)
[2024-08-21 16:52] LABS: A/G RATIO 1.2; ALANINE AMINOTRANSFERASE,ALT 97 U/L (16-63); ALBUMIN 4.5 g/dL (3.4-5.0); ALKALINE PHOSPHATASE 98 U/L (46-116); ANION GAP 21.1 mEq/L (7-13); ASPARTATE AMNIOTRANSFERASE,AST 51 U/L (15-37); BILIRUBIN TOTAL 0.2 mg/dL (0.2-1.0); BLOOD UREA NITROGEN,BUN 10 mg/dL (7-18); BUN/CREATININE RATIO 9.4 (No establ ref range); CALCIUM 9.5 mg/dL (8.5-10.1); CARBON DIOXIDE,CO2 22 mmol/L (21-32); CHLORIDE,CL 102 mmol/L (98-107); CREATININE 1.06 mg/dL (0.70-1.30); EST CRCL DRUG DOSING (CG) 93.73 mL/min; GLUCOSE RANDOM 143 mg/dL (70-99); MAGNESIUM 2.1 mg/dL (1.8-2.4); POTASSIUM,K 4.1 mmol/L (3.5-5.1); PROTEIN TOTAL,TP 8.1 g/dL (6.4-8.2); SODIUM,NA 141 mmol/L (136-145)
[2024-08-21 16:55] LABS: C-REACTIVE PROTEIN < 0.50 ng/dL (<=0.50); ESTIMATED GFR 88 mL/min (>=60); ETHANOL BLOOD MEDICAL < 3 mg/dL (0)
[2024-08-21] MEDS: LORazepam 2 MG/ML SDV ONE ×2 (17:00)
[2024-08-21 17:14] LABS: EOSINOPHILS PERCENT MAN 1 % (1-3); LYMPHOCYTES PERCENT MAN 18 % (20-50); MONOCYTES PERCENT MAN 5 % (2-8); SEG NEUTROPHILS PERCENT MAN 76 % (42-75)
[2024-08-21] MEDS: Sodium Chloride 0.9% 1,000 ML IV ONE (17:25)
== END 2024-08-21 18:14 | disposition home or self-care (01) ==
LOC: DL.ED 15:54
DX: G40.909 Epilepsy, unspecified, not intractable, without status epilepticus (principal); I10 Essential (primary) hypertension; E11.9 Type 2 diabetes mellitus without complications; E78.00 Pure hypercholesterolemia, unspecified; Z86.16 Personal history of COVID-19; Z91.048 Other nonmedicinal substance allergy status; Z79.4 Long term (current) use of insulin; Z79.84 Long term (current) use of oral hypoglycemic drugs; Z79.899 Other long term (current) drug therapy
CPT/HCPCS: 36415; 70450; 80053; 80307; 82947; 83605; 83735; 85025; 86140; 96361; 96374; 96375; 99284; 99285; C1758; J1953; J2060; J2310; J7030; J3490

== ENCOUNTER 2024-09-06 04:28 | Emergency (ER) | payer MEDICAID ==
[2024-09-06] MEDS: levETIRAcetam 500 MG Tab PO STA (04:46)
[2024-09-06 06:02] LABS: HEMATOCRIT 50.1 % (40.0-54.0); HEMOGLOBIN 17.7 g/dL (14.0-18.0); MEAN CORPUSCULAR HEMOGLOBIN 31.6 pg (27.0-34.0); MEAN CORPUSCULAR HGB CONC 35.3 g/dL (33.0-35.0); MEAN CORPUSCULAR VOLUME 89.3 fL (80-100); RED BLOOD CELL COUNT 5.61 10^6/uL (4.6-6.2); WHITE BLOOD CELL COUNT,WBC 6.4 10^3/uL (5.0-10.0)
[2024-09-06 06:15] LABS: ALBUMIN 3.9 g/dL (3.4-5.0); ANION GAP 19.6 mEq/L (7-13); BILIRUBIN TOTAL 0.3 mg/dL (0.2-1.0); CALCIUM 9.2 mg/dL (8.5-10.1); EST CRCL DRUG DOSING (CG) 87.22 mL/min; MAGNESIUM 1.7 mg/dL (1.8-2.4); POTASSIUM,K 3.6 mmol/L (3.5-5.1); PROTEIN TOTAL,TP 7.7 g/dL (6.4-8.2)
[2024-09-06 06:15] LABS: APPEARANCE,URINE CLEAR (CLEAR); BILIRUBIN,URINE NEGATIVE (NEGATIVE); COLOR,URINE YELLOW (YELLOW); GLUCOSE,URINE 500 (NEGATIVE); KETONES,URINE NEGATIVE (NEGATIVE); LEUKOCYTE ESTERASE,URINE NEGATIVE (NEGATIVE); NITRITE,URINE NEGATIVE (NEGATIVE); OCCULT BLOOD,URINE TRACE-INTACT (NEGATIVE); PROTEIN,URINE 30 (NEGATIVE); UROBILINOGEN,URINE 0.2 mg/dL (0.2-1.0)
[2024-09-06 06:51] LABS: EPITHELIAL CELLS,URINE RARE /HPF (NOT SEEN); MUCUS,URINE MODERATE /LPF (NOT SEEN)
[2024-09-06 06:52] LABS: AMORPHOUS SEDIMENT,URINE FEW /HPF (NOT SEEN); BACTERIA,URINE FEW /HPF (0-FEW/HPF); RBC,URINE 0-5 /HPF (0-5); WBC,URINE 0-5 /HPF (0-5/HPF)
== END 2024-09-06 06:40 | disposition home or self-care (01) ==
LOC: DL.ED 04:28
DX: G40.409 Other generalized epilepsy and epileptic syndromes, not intractable, without status epilepticus (principal); S01.512A Laceration without foreign body of oral cavity, initial encounter; I10 Essential (primary) hypertension; E78.00 Pure hypercholesterolemia, unspecified; E11.9 Type 2 diabetes mellitus without complications; Z86.16 Personal history of COVID-19; Z91.048 Other nonmedicinal substance allergy status; Z79.4 Long term (current) use of insulin; Z79.84 Long term (current) use of oral hypoglycemic drugs; Z79.899 Other long term (current) drug therapy; W50.3XXA Accidental bite by another person, initial encounter
CPT/HCPCS: 36415; 80053; 81001; 83735; 85027; 99284; A9270

== ENCOUNTER 2024-10-23 10:57 | Emergency (ER) | payer MEDICAID ==
[2024-10-23 11:07] LABS: BASOPHILS PERCENT AUTO 0.4 % (0.0-1.0); EOSINOPHILS PERCENT AUTO 2.1 % (1.0-3.0); HEMATOCRIT 50.9 % (40.0-54.0); HEMOGLOBIN 18.2 g/dL (14.0-18.0); LYMPHOCYTES PERCENT AUTO 30.4 % (20.5-50.1); MEAN CORPUSCULAR HEMOGLOBIN 31.9 pg (27.0-34.0); MEAN CORPUSCULAR HGB CONC 35.8 g/dL (33.0-35.0); MEAN CORPUSCULAR VOLUME 89.1 fL (80-100); MONOCYTES PERCENT AUTO 5.3 % (2-8); NEUTROPHILS PERCENT AUTO 61.8 % (42.2-75.2); PLATELET COUNT,PLT 192 10^3/uL (150-450); RED BLOOD CELL COUNT 5.71 10^6/uL (4.6-6.2); WHITE BLOOD CELL COUNT,WBC 7.2 10^3/uL (5.0-10.0)
[2024-10-23 11:25] LABS: A/G RATIO 1.2; ALANINE AMINOTRANSFERASE,ALT 115 U/L (16-63); ALBUMIN 4.4 g/dL (3.4-5.0); ALKALINE PHOSPHATASE 102 U/L (46-116); ANION GAP 18.6 mEq/L (7-13); ASPARTATE AMNIOTRANSFERASE,AST 53 U/L (15-37); BILIRUBIN TOTAL 0.4 mg/dL (0.2-1.0); BLOOD UREA NITROGEN,BUN 16 mg/dL (7-18); BUN/CREATININE RATIO 19.8 (No establ ref range); CALCIUM 9.5 mg/dL (8.5-10.1); CARBON DIOXIDE,CO2 26 mmol/L (21-32); CHLORIDE,CL 101 mmol/L (98-107); CREATININE 0.81 mg/dL (0.70-1.30); GLUCOSE RANDOM 136 mg/dL (70-99); MAGNESIUM 1.6 mg/dL (1.8-2.4); POTASSIUM,K 3.6 mmol/L (3.5-5.1); PROTEIN TOTAL,TP 8.2 g/dL (6.4-8.2); SODIUM,NA 142 mmol/L (136-145)
[2024-10-23 11:26] LABS: ESTIMATED GFR 111 mL/min (>=60)
[2024-10-23] MEDS: levETIRAcetam in NaCl (iso-os) 1,500 MG in Premix Bag 1 BAG IV ONE (11:36)
[2024-10-23] MEDS: Sodium Chloride 0.9% 500 ML IV SCH (11:36)
== END 2024-10-23 13:53 | disposition home or self-care (01) ==
LOC: DL.ED 10:57
DX: E83.42 Hypomagnesemia (principal); R19.7 Diarrhea, unspecified; I10 Essential (primary) hypertension; E78.00 Pure hypercholesterolemia, unspecified; E11.9 Type 2 diabetes mellitus without complications; Z86.16 Personal history of COVID-19; Z91.018 Allergy to other foods; Z79.899 Other long term (current) drug therapy; Z79.84 Long term (current) use of oral hypoglycemic drugs; Z79.4 Long term (current) use of insulin
CPT/HCPCS: 36415; 80053; 82947; 83735; 85025; 96361; 96374; 99285; J1953; J7040

== ENCOUNTER 2024-11-28 07:06 | Emergency (ER) | payer MEDICAID ==
[2024-11-28 07:57] LABS: BASOPHILS PERCENT AUTO 0.6 % (0.0-1.0); EOSINOPHILS PERCENT AUTO 5.2 % (1.0-3.0); HEMATOCRIT 46.5 % (40.0-54.0); HEMOGLOBIN 16.3 g/dL (14.0-18.0); LYMPHOCYTES PERCENT AUTO 30.9 % (20.5-50.1); MEAN CORPUSCULAR HEMOGLOBIN 31.8 pg (27.0-34.0); MEAN CORPUSCULAR HGB CONC 35.1 g/dL (33.0-35.0); MEAN CORPUSCULAR VOLUME 90.8 fL (80-100); MONOCYTES PERCENT AUTO 8.6 % (2-8); NEUTROPHILS PERCENT AUTO 54.7 % (42.2-75.2); PLATELET COUNT,PLT 184 10^3/uL (150-450); RED BLOOD CELL COUNT 5.12 10^6/uL (4.6-6.2)
[2024-11-28] MEDS: Famotidine 20 MG/2 ML SDV IVPUSH ONE (07:59)
[2024-11-28] MEDS: Sodium Chloride 0.9% 1,000 ML IV ONE (08:00)
[2024-11-28] MEDS: Ondansetron 4 MG/2 ML SDV IVPUSH ONE (08:00)
[2024-11-28 08:20] LABS: A/G RATIO 1.1; ALANINE AMINOTRANSFERASE,ALT 98 U/L (16-63); ALBUMIN 3.7 g/dL (3.4-5.0); ALKALINE PHOSPHATASE 98 U/L (46-116); ANION GAP 14.6 mEq/L (7-13); ASPARTATE AMNIOTRANSFERASE,AST 38 U/L (15-37); BILIRUBIN TOTAL 0.2 mg/dL (0.2-1.0); BLOOD UREA NITROGEN,BUN 13 mg/dL (7-18); BUN/CREATININE RATIO 15.7 (No establ ref range); CALCIUM 8.9 mg/dL (8.5-10.1); CARBON DIOXIDE,CO2 27 mmol/L (21-32); CHLORIDE,CL 106 mmol/L (98-107); CREATININE 0.83 mg/dL (0.70-1.30); EST CRCL DRUG DOSING (CG) 105.08 mL/min; GLUCOSE RANDOM 121 mg/dL (70-99); LIPASE 209 U/L (16-77); MAGNESIUM 1.5 mg/dL (1.8-2.4); POTASSIUM,K 3.6 mmol/L (3.5-5.1); PROTEIN TOTAL,TP 7.1 g/dL (6.4-8.2); SODIUM,NA 144 mmol/L (136-145)
[2024-11-28 08:27] LABS: ESTIMATED GFR 110 mL/min (>=60); ETHANOL BLOOD MEDICAL < 3 mg/dL (0)
[2024-11-28] MEDS: Iopamidol 612 MG/ML 100 ML Bottle IVPUSH ONE (08:43)
[2024-11-28] MEDS: Magnesium Sulf/Wat 2 GM/50 mL 2 GM in Premix Bag 1 BAG IV ONE (08:47)
[2024-11-28 10:20] LABS: APPEARANCE,URINE CLEAR (CLEAR); BILIRUBIN,URINE NEGATIVE (NEGATIVE); COLOR,URINE YELLOW (YELLOW); GLUCOSE,URINE 500 (NEGATIVE); KETONES,URINE NEGATIVE (NEGATIVE); LEUKOCYTE ESTERASE,URINE NEGATIVE (NEGATIVE); NITRITE,URINE NEGATIVE (NEGATIVE); OCCULT BLOOD,URINE NEGATIVE (NEGATIVE); PROTEIN,URINE NEGATIVE (NEGATIVE); UROBILINOGEN,URINE 0.2 mg/dL (0.2-1.0)
[2024-11-28 10:25] LABS: AMPHETAMINES,URINE NEGATIVE (NEGATIVE); BARBITURATES,URINE NEGATIVE (NEGATIVE); BENZODIAZEPINE,URINE NEGATIVE (NEGATIVE); MDMA (ECSTASY), URINE NEGATIVE (NEGATIVE); METHADONE,URINE NEGATIVE (NEGATIVE); METHAMPHETAMINES,URINE NEGATIVE (NEGATIVE); OPIATES,URINE NEGATIVE (NEGATIVE); OXYCODONE,URINE NEGATIVE (NEGATIVE); PHENCYCLIDINE,URINE NEGATIVE (NEGATIVE); TCA,URINE NEGATIVE (NEGATIVE)
== END 2024-11-28 10:53 | disposition home or self-care (01) ==
LOC: DL.ED 07:06
DX: R11.2 Nausea with vomiting, unspecified (principal); R19.7 Diarrhea, unspecified; E83.42 Hypomagnesemia; F12.10 Cannabis abuse, uncomplicated; I10 Essential (primary) hypertension; E78.00 Pure hypercholesterolemia, unspecified; E11.9 Type 2 diabetes mellitus without complications; Z86.16 Personal history of COVID-19; Z79.899 Other long term (current) drug therapy; Z79.84 Long term (current) use of oral hypoglycemic drugs; Z79.4 Long term (current) use of insulin; Z91.048 Other nonmedicinal substance allergy status
CPT/HCPCS: 36415; 74177; 80053; 80305-QW; 80307; 81003; 83690; 83735; 84484; 85025; 93005; 93010; 96361; 96365; 96366; 96375; 99284; 99284-25; J2405; J3475; J7030; Q9967